=== PATIENT | female | born 1955 | race Caucasian/White ===

== ENCOUNTER 2021-12-22 08:38 | Outpatient (REF) | payer OTHER, SELFPAY ==
[2021-12-22 11:45] LABS: MANUAL DIFF FLAG NO
[2021-12-22 11:55] LABS: Basophils Percent Auto 0.6 % (0-2); Eosinophils Absolute Auto 0.1 X10*3/uL (0.0-0.4); Eosinophils Percent Auto 2.1 % (0-4); Hematocrit 41.5 % (37.0-47.0); Hemoglobin 12.7 g/dl (12.0-16.0); Imm Gran Abs Auto 0.02 X10*3/uL (0.00-0.03); Imm Gran Pct Auto 0.3 % (0.0-0.4); Lymphocytes Absolute Auto 1.6 X10*3/uL (1.2-4.9); Lymphocytes Percent Auto 23.4 % (20-40); Mean Corpuscular HGB Conc 30.6 g/dl (31.0-35.0); Mean Corpuscular Hemoglobin 27.1 pg (27.0-33.0); Mean Corpuscular Volume 88.7 fL (80.0-98.0); Mean Platelet Volume 12.9 fL (9.4-12.3); Monocytes Absolute Auto 0.4 X10*3/uL (0.1-1.2); Monocytes Percent Auto 5.5 % (2-11); Neutrophils Absolute Auto 4.6 x10*3/uL (2.0-8.3); Neutrophils Percent Auto 68.1 % (45-73); Platelet Count 235 X10*3/uL (160-400); Red Blood Count 4.68 X10*6/uL (4.20-5.50); Red Cell Distribution Width 14.4 % (11.0-16.0); White Blood Count 6.7 X10*3/uL (4.8-10.8)
[2021-12-22 12:16] LABS: Alanine Aminotransferase 12 U/L (0-31); Albumin Level 4.2 g/dL (3.5-5.0); Alkaline Phosphatase 76 U/L (39-117); Anion Gap 12 (12-20); Aspartate Amino Transferase 17 U/L (5-31); Bilirubin Total 0.6 mg/dL (0.0-1.0); Blood Urea Nitrogen 17 mg/dL (9-16); Calcium 9.6 mg/dL (8.4-10.2); Carbon Dioxide 27 mmol/L (22-29); Chloride 103 mmol/L (96-108); Cholesterol 215 mg/dL; Estimated Glomerular Filt Rate > 60; Glucose Fasting 88 mg/dL (60-99); HDL Cholesterol 63 mg/dL; LDL Cholesterol Calculated 139 mg/dl; Potassium 4.2 mmol/L (3.3-5.1); Sodium 138 mmol/L (135-145); Total Protein 7.2 g/dL (6.5-8.0); Triglycerides 65 mg/dL
[2021-12-22 12:20] LABS: Free T4 (Free Thyroxine) 1.29 ng/dL (0.71-1.85)
[2021-12-22 12:35] LABS: Folate 14.3 ng/mL (> or = 4.0); Vitamin B12 1455 pg/mL (200-900)
[2021-12-22 12:40] LABS: Rheumatoid Factor < 15.0 IU/mL (<15.0)
[2021-12-22 14:23] LABS: Erythrocyte Sedimentation Rate 8 MM/HR (0-20)
[2021-12-24 05:16] LABS: Thyroid Peroxidase Antibodies 1 IU/mL (<9)
[2021-12-24 13:41] LABS: CRP High Sensitivity >10.0 mg/L
== END 2021-12-22 08:39 | disposition home or self-care (01) ==
LOC: HO.HMGCLDS 08:38
PROVIDERS: PCP Internal Medicine; Visit Provider Internal Medicine
DX: E03.9 Hypothyroidism, unspecified (principal); M25.50 Pain in unspecified joint; R42 Dizziness and giddiness; Z86.16 Personal history of COVID-19
CPT/HCPCS: 36415; 80053; 80061; 82306; 82607; 82746; 84439; 84443; 85025; 85652; 86141; 86376; 86431

== ENCOUNTER 2022-02-11 09:24 | Outpatient (REF) | payer OTHER, SELFPAY ==
--- NOTE | ~2022-02-11 | MM_ITS ---
EXAMINATION: MM SCREENING DIGITAL BREAST TOMOSYNTHESIS, BILATERAL CLINICAL INFORMATION: Screening. Asymptomatic. Benign left ultrasound guided biopsy 07/31/2016 (fibroadenoma). The lifetime risk of breast cancer based on the Tyrer-Cuzick Model is 4%. COMPARISON: Outside exams from [place]: mammography 01/30/2019, 07/31/2016, 07/24/2016, left breast ultrasound and biopsy 07/31/2016. TECHNIQUE: Digital breast tomosynthesis is performed in both the craniocaudal and mediolateral oblique views along with computer-aided detection (CAD). Synthesized 2D images are generated from the tomosynthesis. FINDINGS: There are scattered areas of fibroglandular density (ACR BI-RADS breast composition Category b). There are no significant masses, abnormal calcifications, or other abnormalities. There is a biopsy clip marker overlying stable circumscribed nodule consistent with biopsy proven fibroadenoma anterior 3:00 left breast. There is a probable small intramammary node again noted mid outer right breast. There are some fine vascular calcifications. No significant changes. MM/MM tomosynthesis screening BI IMPRESSION: No mammographic evidence of malignancy. ASSESSMENT: BI-RADS 2: Benign RECOMMENDATION: Routine annual mammography screening. This patient's information was entered into a reminder system with a target due date for their next mammogram.
--- NOTE | ~2022-02-11 | MM_ITS ---
EXAMINATION: BONE DENSITOMETRY CLINICAL INDICATION: Menopause. COMPARISON: None (current study represents initial baseline exam). TECHNIQUE: Using a [employer] DXA System (software version: 13.1) manufactured by [employer], dual-energy x-ray absorptiometry was performed of the lumbar spine and left hip. The images are of good technical quality. Summary results are attached. FINDINGS: AP SPINE L1-L4: BMD 1.053 g/cm2, Z-score 0.1, T-score -1.1, osteopenia. LEFT FEMUR, NECK: BMD 0.760 g/cm2, Z-score -0.7, T-score -2.0, osteopenia. LEFT FEMUR, TOTAL: BMD 0.785 g/cm2, Z-score -0.7, T-score -1.8, osteopenia. IDENTIFIED RISK FACTORS: Secondary osteoporosis (early menopause). Parental hip fracture. Hysterectomy. HISTORY OF FRACTURE: None listed. MEDICATIONS: None listed. MM/XR DEXA axial skeleton IMPRESSION: 1. DIAGNOSIS: Osteopenia based on the lowest T-score value of -2.0 in the femoral neck applying World Health Organization criteria. 2. 10-YEAR FRACTURE RISK PREDICTION, FRAX: Major osteoporotic fracture (clinical spine, forearm, hip or shoulder) 10.6%. Hip fracture 1.9%. 3. Treatment Recommendations: NOF guidelines recommend consideration for treatment in postmenopausal women and men age 50 and older presenting with the following: -A hip or vertebral (clinical or morphometric) fracture. -T-score less than or equal to -2.5 at the femoral neck or spine after appropriate evaluation to exclude secondary causes. -Low bone mass at the hip or spine and a 10-year fracture probability by FRAX of greater than or equal to 3% for hip fracture or greater than or equal to 20% for major osteoporotic fracture based on the [place] adapted WHO algorithm. 4. Other Recommendations: All treatment decisions require clinical judgment and consideration of individual patient factors, including patient preferences, comorbidities, previous drug use, risk factors not captured in the FRAX model (e.g. frailty, falls, vitamin D deficiency, increased bone turnover, interval significant decline in bone density) and possible under or overestimation of fracture risk by FRAX. Additional medical evaluation for secondary cause of low bone mineral density may be appropriate. FUTURE SCAN RECOMMENDATION: People with diagnosed cases of osteoporosis or at high risk for fracture should have regular bone mineral density tests. For patients eligible for Medicare, routine testing is allowed once every 2 years. The testing frequency can be increased to one year for patients who have rapidly progressing disease, those who are receiving or discontinuing medical therapy to restore bone mass, or have additional risk factors.
== END 2022-02-11 09:25 | disposition home or self-care (01) ==
LOC: HO.MAMMO 09:24
PROVIDERS: PCP Internal Medicine; Visit Provider Internal Medicine
DX: Z13.820 Encounter for screening for osteoporosis (principal); E89.40 Asymptomatic postprocedural ovarian failure; Z90.710 Acquired absence of both cervix and uterus; Z12.31 Encounter for screening mammogram for malignant neoplasm of breast
CPT/HCPCS: 77063; 77067; 77080

== ENCOUNTER 2022-06-01 11:27 | Outpatient (REF) | payer OTHER, SELFPAY ==
--- NOTE | ~2022-06-01 | XR_ITS ---
EXAMINATION: XR KNEE, RIGHT CLINICAL INFORMATION: Right knee pain. COMPARISON: None TECHNIQUE: Four views of the right knee. FINDINGS: Jenq-cl-nolyziar tricompartmental degenerative joint changes are seen most pronounced in the medial femoral-tibial compartment. There is no acute fracture or dislocation. No significant joint effusion. The soft tissues are unremarkable. XR/XR knee RT 4V IMPRESSION: Mild to moderate tricompartmental degenerative joint changes suggesting osteoarthritis. No definitive acute abnormality.
== END 2022-06-01 11:28 | disposition home or self-care (01) ==
LOC: HO.HMGCX 11:27
PROVIDERS: PCP Internal Medicine; Visit Provider Physician Assistant
DX: M25.561 Pain in right knee (principal)
CPT/HCPCS: 73564

== ENCOUNTER 2022-07-21 07:59 | Outpatient (REF) | payer OTHER, SELFPAY ==
--- NOTE | ~2022-07-21 | XR_ITS ---
EXAMINATION: XR KNEE AP STANDING, BILATERAL XR RIGHT KNEE CLINICAL INFORMATION: Pain. COMPARISON: X-ray the right knee 06/01/2022. TECHNIQUE: AP bilateral standing view of the knees was obtained. Additional patella and lateral views of the right knee. FINDINGS: RIGHT KNEE: Medial compartment: There is joint space narrowing marginal osteophytes unchanged, indicative of bvnz-ko-muczrtjl osteoarthritis. Lateral compartment normal. Patellofemoral Compartment: Marginal osteophytes without joint space narrowing, indicative of mild osteoarthritis. No effusion. XR/XR knee standing BI IMPRESSION: Mild osteoarthritis of the right knee unchanged.
--- NOTE | ~2022-07-21 | XR_ITS ---
EXAMINATION: XR KNEE AP STANDING, BILATERAL XR RIGHT KNEE CLINICAL INFORMATION: Pain. COMPARISON: X-ray the right knee 06/01/2022. TECHNIQUE: AP bilateral standing view of the knees was obtained. Additional patella and lateral views of the right knee. FINDINGS: RIGHT KNEE: Medial compartment: There is joint space narrowing marginal osteophytes unchanged, indicative of aeyz-mf-cfyhjvii osteoarthritis. Lateral compartment normal. Patellofemoral Compartment: Marginal osteophytes without joint space narrowing, indicative of mild osteoarthritis. No effusion. XR/XR knee RT 1V IMPRESSION: Mild osteoarthritis of the right knee unchanged.
== END 2022-07-21 08:00 | disposition home or self-care (01) ==
LOC: HO.HOSX 07:59
PROVIDERS: Visit Provider Physician Assistant
DX: M17.11 Unilateral primary osteoarthritis, right knee (principal)
CPT/HCPCS: 20610; 73560; 73565; 99202; J1040

== ENCOUNTER → 2022-08-03 11:48 | Outpatient (BNVA) | payer OTHER, SELFPAY | PROVIDERS: PCP Internal Medicine; Visit Provider Orthopaedic Surgery | DX: M17.11 Unilateral primary osteoarthritis, right knee (principal) | CPT/HCPCS: 99212 ==

== ENCOUNTER → 2022-08-25 08:47 | Outpatient (BNVA) | payer OTHER, SELFPAY | PROVIDERS: PCP Internal Medicine; Visit Provider Internal Medicine Rheumatology | DX: M17.11 Unilateral primary osteoarthritis, right knee (principal); M19.049 Primary osteoarthritis, unspecified hand; G56.01 Carpal tunnel syndrome, right upper limb | CPT/HCPCS: 99202 ==

== ENCOUNTER 2022-10-06 13:18 | Outpatient (REF) | payer OTHER, SELFPAY ==
--- NOTE | ~2022-10-06 | XR_ITS ---
EXAMINATION: XR HAND, RIGHT CLINICAL INFORMATION: Primary osteoarthritis. COMPARISON: Prior study 2016 TECHNIQUE: PA, lateral, and oblique views of the right hand. FINDINGS: Mild degenerative osteoarthritic changes involving primarily the distal interphalangeal joints of all fingers evident by narrowing of joint spaces and developed small osteophyte from the edges of articular surfaces. Degenerative osteoarthritis also involving the first carpometacarpal joint. No bone erosions. XR/XR hand RT min 3V IMPRESSION: Progression of mild to moderate degenerative osteoarthritis.
== END 2022-10-06 13:19 | disposition home or self-care (01) ==
LOC: HO.XRAY 13:18
PROVIDERS: PCP Internal Medicine; Visit Provider Internal Medicine Rheumatology
DX: M19.041 Primary osteoarthritis, right hand (principal)
CPT/HCPCS: 73130

== ENCOUNTER → 2022-10-13 13:08 | Outpatient (BNVA) | payer OTHER, SELFPAY | PROVIDERS: PCP Internal Medicine; Visit Provider Orthopaedic Surgery | DX: G56.01 Carpal tunnel syndrome, right upper limb (principal); E03.9 Hypothyroidism, unspecified; Z86.16 Personal history of COVID-19 | CPT/HCPCS: 99202 ==

== ENCOUNTER 2022-11-11 09:00 | Outpatient (REF) | payer OTHER, SELFPAY ==
[2022-11-11 12:10] LABS: Free T4 (Free Thyroxine) 1.19 ng/dL (0.71-1.85); Thyroid Stimulating Hormone 1.95 uIU/mL (0.32-4.0); Vitamin D 25-OH Total 24.6 ng/mL (>30)
[2022-11-11 12:21] LABS: Folate 14.3 ng/mL (> or = 4.0); Vitamin B12 721 pg/mL (200-900)
== END 2022-11-11 09:01 | disposition home or self-care (01) ==
LOC: HO.HMGCLDS 09:00
PROVIDERS: PCP Internal Medicine; Visit Provider Internal Medicine
DX: E03.9 Hypothyroidism, unspecified (principal); E89.40 Asymptomatic postprocedural ovarian failure; R74.8 Abnormal levels of other serum enzymes; Z78.0 Asymptomatic menopausal state
CPT/HCPCS: 36415; 82306; 82607; 82746; 84439; 84443

== ENCOUNTER 2022-11-30 10:14 | Day surgery (SDC) | payer OTHER, SELFPAY ==
--- NOTE | 2022-11-30 10:53 | MHC.SHP ---
Pre-Procedural Eval Section A Date of Service: 11/30/22 The patient is an INPATIENT: No Changes since office visit: No Cold of Flu in the past 2 weeks, No New Medical Problems, No Changes in Medication and No Patient answered all questions The History & Physical has been completed within 30 days and I have reviewed it.: Yes Section B Chief Complaint: Carpal tunnel syndrome, right upper limb Allergies: Allergies Allergy/AdvReac Type Severity Reaction Status Date / Time No Known Allergies Allergy Unverified 11/05/22 08:23 [No Known Allergies*] Plan I have reviewed the history and physical and performed a pertinent physical examination on my patient. No changes have occurred unless specified. Time Spent With Patient Time: Total time managing care of this patient today ____ minutes.
--- NOTE | 2022-11-30 10:54 | W.PM.OPN ---
Operative Note Operative Note Date of Service: 11/30/22 Narrative: Preop diagnosis: 1. right Carpal tunnel syndrome Postop diagnosis: same Procedure: 1. right Carpal tunnel release Surgeon: Gabriela Petit MD Anesthesia: local block using 1% lidocaine with epinephrine Findings: Thickened transverse carpal ligament. EBL: Less than 5 mL Specimens: None Complications: None Disposition: Brought to recovery room in stable condition Plan: Follow-up for 10-14 days for wound check and suture removal Indications: The patient is 67 years old, with right carpal tunnel syndrome that has been unresponsive to nonoperative management. The risks and benefits of operative treatment including but not limited to risk of damage to blood vessels, nerves, tendons, infection, persistent pain, persistent symptoms, or possible need for additional surgery were discussed with the patient and the patient wishes to proceed with surgery. Procedure: Once consent was obtained a local block was performed using a combination of 1% lidocaine with epinephrine. The patient was then brought back to the operating suite and placed on the operative table in supine position. The right upper extremity was prepped and draped in a standard surgical fashion. Once assured that we had a good block, a 2.0 cm longitudinal incision was made centered over the carpal tunnel. The incision was made through the skin to the subcutaneous tissues using a #15 blade. Dissection was made down to the level of the transverse carpal ligament with care being taken to protect the palmar cutaneous nerve. Once the transverse carpal ligament was clearly visualized, a longitudinal incision was made in the transverse carpal ligament 1st using a #15 blade, then using tenotomy scissors under direct visualization. Care was taken to look for and protect the motor branch of the median nerve when seen in this area. Once satisfied with our carpal tunnel release the wound was copiously irrigated with normal saline and hemostasis was obtained with a brief period of local pressure. The skin edges were reapproximated with some 5.0 nylon suture material and a sterile dressing was applied. The patient appears to have tolerated the procedure well and with no complications. All digits were well vascularized at the conclusion of the case.
[2022-11-30 11:00] VITALS: BMI 32.2
[2022-11-30 11:09] VITALS: BP 140/82; PULSE 75; RESP 16; TEMP 36.1; O2SAT 100
[2022-11-30 12:38] VITALS: BP 141/86; PULSE 74; RESP 16; O2SAT 100
== END 2022-11-30 12:39 | disposition home or self-care (01) ==
PROVIDERS: PCP Internal Medicine; Visit Provider Orthopaedic Surgery
PROC: (CPT 64721; principal; 2022-11-30 12:20)
DX: G56.01 Carpal tunnel syndrome, right upper limb (principal); R20.0 Anesthesia of skin; R42 Dizziness and giddiness; E03.9 Hypothyroidism, unspecified; Z86.16 Personal history of COVID-19
CPT/HCPCS: 64721; J0171

== ENCOUNTER → 2022-12-15 09:14 | Outpatient (BNVA) | payer OTHER, SELFPAY | PROVIDERS: Visit Provider Orthopaedic Surgery | DX: Z13.89 Encounter for screening for other disorder (principal) ==

== ENCOUNTER 2023-02-15 09:10 | Outpatient (REF) | payer OTHER, SELFPAY ==
[2023-02-15 11:57] LABS: Alanine Aminotransferase 15 U/L (0-31); Aspartate Amino Transferase 18 U/L (5-31); Cholesterol 200 mg/dL; Glucose Fasting 96 mg/dL (60-99); HDL Cholesterol 58 mg/dL; LDL Cholesterol Calculated 129 mg/dl; Triglycerides 67 mg/dL
[2023-02-15 12:10] LABS: Folate 7.5 ng/mL (> or = 4.0); Free T4 (Free Thyroxine) 1.09 ng/dL (0.71-1.85); Thyroid Stimulating Hormone 1.47 uIU/mL (0.32-4.0); Vitamin B12 561 pg/mL (200-900); Vitamin D 25-OH Total 19.4 ng/mL (>30)
== END 2023-02-15 09:11 | disposition home or self-care (01) ==
LOC: HO.HMGCLDS 09:10
PROVIDERS: PCP Internal Medicine; Visit Provider Internal Medicine
DX: E89.40 Asymptomatic postprocedural ovarian failure (principal); K21.00 Gastro-esophageal reflux disease with esophagitis, without bleeding; M85.89 Other specified disorders of bone density and structure, multiple sites; E03.9 Hypothyroidism, unspecified
CPT/HCPCS: 36415; 80061; 82306; 82607; 82746; 82947; 84439; 84443; 84450; 84460

== ENCOUNTER 2023-03-24 09:10 | Outpatient (REF) | payer OTHER, SELFPAY ==
--- NOTE | ~2023-03-24 | MM_ITS ---
EXAMINATION: MM SCREENING DIGITAL BREAST TOMOSYNTHESIS, BILATERAL CLINICAL INFORMATION: Screening. Asymptomatic. The lifetime risk of breast cancer based on the Tyrer-Cuzick Model is 2.2%. COMPARISON: Mammography: 02/11/2022 and studies dating back to 07/24/2016. TECHNIQUE: Digital breast tomosynthesis is performed in both the craniocaudal and mediolateral oblique views along with computer-aided detection (CAD). Synthesized 2D images are generated from the tomosynthesis. FINDINGS: The breasts are heterogeneously dense, which may obscure small masses (ACR BI-RADS breast composition Category c). There are some scattered calcifications seen bilaterally which are stable. There is a stable grouping of calcifications in the retroareolar region of the left breast. There is a cluster of calcifications seen approximately 5 cm from the nipple along nipple line on mediolateral oblique projection of the right breast which on tomographic views appear to represent vascular calcifications.There are stable circumscribed densities seen bilaterally. No definite new abnormal dominant mass or suspicious grouping of microcalcifications identified. MM/MM tomosynthesis screening BI IMPRESSION: No significant changes from prior exam. ASSESSMENT: BI-RADS 2: Benign RECOMMENDATION: Routine annual mammography screening. This patient's information was entered into a reminder system with a target due date for their next mammogram.
== END 2023-03-24 09:11 | disposition home or self-care (01) ==
LOC: HO.MAMMO 09:10
PROVIDERS: PCP Internal Medicine; Visit Provider Internal Medicine
DX: Z12.31 Encounter for screening mammogram for malignant neoplasm of breast (principal)
CPT/HCPCS: 77063; 77067

== ENCOUNTER 2023-06-11 11:37 | Outpatient (AMB) | payer OTHER, SELFPAY ==
--- NOTE | 2023-06-11 11:51 | A.OFFPC_ITS ---
Vital Signs 06/11/23 12:04 Height 5 ft 3 in Weight 177 lb BMI 31.4 BP 112/70 Blood Pressure Location Rt brachial Position Sitting Pulse 74 Pulse Source Pulse Oximeter Pulse Oximetry (%) 97 Oxygen Delivery Method Room Air Intake Visit Reasons: f/u PAD Intake Note: Patient here for PAD screening. Allergies No Known Allergies [No Known Allergies*] Allergy (Unverified 06/11/23 12:21) Medication List - Last Reconciled 06/11/23 by Mahogany Hopper MD acetaminophen ER 650 mg PO Q12H PRN albuterol sulfate 90 mcg/actuation (Ventolin HFA) 2 puffs inhalation Q4H PRN arm brace (Wrist Brace Medium) As directed cholecalciferol (vitamin D3) 1,250 mcg PO QWEEK 3 months escitalopram oxalate 5 mg PO DAILY lansoprazole 15 mg PO QAM PRN levocetirizine 5 mg PO QPM PRN levothyroxine 75 mcg PO DAILY [Rollator Walker with seat As directed Right knee O/A stability with ambulation ] Tobacco use date assessed: 02/11/23 HPI f/u PAD HPI Details 68-year-old lady who recently had a her arterial disease screening done at [facility], which showed peripheral arterial disease, with mild obstruction in the left and moderate obstruction in the right lower extremity. She has been having pain and tingling in lower extremities when walking or standing for prolonged periods of time. This is relieved by resting. Otherwise she has been feeling well [facility] Medical History Acquired hypothyroidism Annual visit for general adult medical examination with abnormal findings Arthralgia Claudication of both lower extremities Environmental and seasonal allergies History of COVID-19 History of uterine fibroid Intermittent lightheadedness Menopause Numbness and tingling of both legs Osteopenia of multiple sites Polyarthralgia Surgical menopause Vitamin D deficiency Surgical History History of partial hysterectomy History of tubal ligation Hx of colonoscopy Family History Daughter Asthma Thyroid disease Sister Asthma Thyroid disease Mother Alzheimer disease Father FHx: early [place] Social History Housing: Apartment Patient Tobacco Use Status: Never used Tobacco e-Cigarette/Vaping Use: Never Used service: No Current occupational status: disabled Cognitive needs: No Hearing needs: No Vision needs: Yes Questionnaire Thrive Questionnaire Date Thrive assessed: 02/11/23 ELIGIO-7 AMB Questionnaire ELIGIO-7 Date ELIGIO - 7 assessed: 02/11/23 Source: Developed by Drs. Carlos Goldstein, Yadira Long, Tigre Esquivel and colleagues, with an educational nayely from [employer]. Physical exam (Primary Care) Vital Signs: Last Vital Signs Pulse 74 06/11/23 12:04 BP 112/70 06/11/23 12:04 Pulse Ox 97 06/11/23 12:04 Oxygen Delivery Method Room Air 06/11/23 12:04 BMI result Body Mass Index 31.4 Tobacco/Smoking Status: Tobacco use Status Tobacco use date assessed 02/11/23 06/11/23 11:52 Patient Tobacco Use Status Never used Tobacco 06/11/23 11:52 e-Cigarette/Vaping Use Never Used 06/11/23 11:52 Thrive Assessment: Date of Thrive Assessment Date Thrive assessed 02/11/23 06/11/23 11:52 Assessment and Plan Assessment & Plan (1) Numbness and tingling of both legs: Code(s): R20.0 - Anesthesia of skin; R20.2 - Paresthesia of skin Plan: Arterial ultrasound of both lower extremities ordered, referred to vascular surgery for further evaluation management (2) Claudication of both lower extremities: Code(s): I73.9 - Peripheral vascular disease, unspecified Plan: Artery ultrasound of both lower extremities ordered, vascular consult obtained (3) Osteopenia of multiple sites: Comment: Bone density scan done February 2022 Code(s): M85.89 - Other specified disorders of bone density and structure, multiple sites Plan: Continue with vitamin-D 3 supplementation . Take adequate calcium from dietary sources. Do regular weight-bearing exercise to prevent further bone loss (4) Acquired hypothyroidism: Code(s): E03.9 - Hypothyroidism, unspecified Plan: Check free T4 and TSH. In the meantime continue with current dose of levothyroxine at 75 mcg once a day in a.m. an hour before breakfast Orders: Orders US arterial duplex LE BI 06/11/23 I73.9 - Peripheral vascular disease, unspecified, R20.0 - Anesthesia of skin, R20.2 - Paresthesia of skin Free T4 (Free Thyroxine) 3 Months E03.9 - Hypothyroidism, unspecified, E89.40 - Asymptomatic postprocedural ovarian failure, M85.89 - Other specified disorders of bone density and structure, multiple sites Thyroid Stimulating Hormone 06/11/23 E03.9 - Hypothyroidism, unspecified, E89.40 - Asymptomatic postprocedural ovarian failure, M85.89 - Other specified disorders of bone density and structure, multiple sites Vitamin D 25-OH Total 06/11/23 E03.9 - Hypothyroidism, unspecified, E89.40 - Asymptomatic postprocedural ovarian failure, M85.89 - Other specified disorders of bone density and structure, multiple sites Referrals Vascular Surgery Referral I73.9 - Peripheral vascular disease, unspecified, R20.0 - Anesthesia of skin, R20.2 - Paresthesia of skin Coding Level of Care Code Est Pt Level 3 (82943) Diagnoses Numbness and tingling of both legs R20.0; R20.2 Claudication of both lower extremities I73.9 Osteopenia of multiple sites M85.89 Acquired hypothyroidism E03.9
[2023-06-11 12:04] VITALS: BP 112/70; PULSE 74; O2SAT 97; BMI 31.4
== END 2023-06-11 13:41 | disposition home or self-care (01) ==
PROVIDERS: PCP Internal Medicine; Visit Provider Internal Medicine
DX: R20.0 Anesthesia of skin (principal); I73.9 Peripheral vascular disease, unspecified; E03.9 Hypothyroidism, unspecified; R20.2 Paresthesia of skin; M85.89 Other specified disorders of bone density and structure, multiple sites
CPT/HCPCS: 99213

== ENCOUNTER 2023-06-23 13:20 | Outpatient (REF) | payer OTHER, SELFPAY ==
--- NOTE | ~2023-06-23 | US_ITS ---
EXAMINATION: NONINVASIVE ASSESSMENT OF THE ARTERIES OF BOTH LOWER EXTREMITIES Lalo Medrano MD CLINICAL INFORMATION: Claudication TECHNIQUE: Bilateral lower extremity duplex ultrasound was performed with velocity measurements and waveform analysis in the common femoral arteries, profunda femoris arteries, proximal mid and distal superficial femoral arteries, popliteal arteries and tibial vessels. This study was performed only at rest. COMPARISON: None FINDINGS: Velocities in cm/sec and phasicity as well as the presence of plaque are reported below. RIGHT LEG: Minimal plaque with triphasic flow throughout. Incidental note is made of a 1.7 x 0.7 x 1.5 cm echogenic mass in the right popliteal fossa with appearances consistent with a lipoma Common Femoral: 165 Profunda Femoris: 99 Proximal SFA: 112 Mid SFA: 113 Distal SFA: 87 Popliteal: 85 Posterior tibial: 69 Peroneal: 66 Anterior tibial: 58 LEFT LEG: Minimal plaque with triphasic flow throughout. Common Femoral: 104 Profunda Femoris: 69 Proximal SFA: 110 Mid SFA: 106 Distal SFA: 97 Popliteal: 77 Posterior tibial: 82 Peroneal: 60 Anterior tibial: 58 US/US arterial duplex LE BI IMPRESSION: There is no evidence of any hemodynamically significant lower extremity arterial disease by waveform or duplex Doppler criteria at rest.
== END 2023-06-23 13:21 | disposition home or self-care (01) ==
LOC: HO.US 13:20
PROVIDERS: PCP Internal Medicine; Visit Provider Internal Medicine
DX: I73.9 Peripheral vascular disease, unspecified (principal); R20.0 Anesthesia of skin; R20.2 Paresthesia of skin
CPT/HCPCS: 93925

== ENCOUNTER 2023-08-02 09:48 | Outpatient (REF) | payer OTHER, SELFPAY ==
[2023-08-02 13:48] LABS: Thyroid Stimulating Hormone 1.21 uIU/mL (0.32-4.0); Vitamin D 25-OH Total 81.1 ng/mL (>30)
== END 2023-08-02 09:49 | disposition home or self-care (01) ==
LOC: HO.HMGCLDS 09:48
PROVIDERS: PCP Internal Medicine; Visit Provider Internal Medicine
DX: M85.89 Other specified disorders of bone density and structure, multiple sites (principal); E03.9 Hypothyroidism, unspecified; E89.40 Asymptomatic postprocedural ovarian failure
CPT/HCPCS: 36415; 82306; 84443

== ENCOUNTER 2023-08-09 10:58 | Outpatient (AMB) | payer MEDICARE, SELFPAY ==
--- NOTE | 2023-08-09 11:25 | A.OFFPC_ITS ---
Vital Signs 08/09/23 11:26 Height 5 ft 3 in Weight 175 lb BMI 31.0 BP 116/80 Pulse 72 Pulse Source Pulse Oximeter Pulse Oximetry (%) 100 Oxygen Delivery Method Room Air Intake Visit Reasons: 6 month follow up Acquired hypothyroidism Intake Note: patient is here today for her 6 month f/u Allergies No Known Allergies [No Known Allergies*] Allergy (Unverified 08/09/23 12:08) Medication List - Last Reconciled 08/09/23 by Mahogany Hopper MD acetaminophen ER 650 mg PO Q12H PRN albuterol sulfate 90 mcg/actuation (Ventolin HFA) 2 puffs inhalation Q4H PRN arm brace (Wrist Brace Medium) As directed escitalopram oxalate 5 mg PO DAILY lansoprazole 15 mg PO QAM PRN levocetirizine 5 mg PO QPM PRN levothyroxine 75 mcg PO DAILY [Rollator Walker with seat As directed Right knee O/A stability with ambulation ] Tobacco use date assessed: 08/09/23 Fall risk assessment: No Falls in past year Last assessed Fall Risk: 08/09/23 Dental Screening Dental Screen Date: 08/09/23 Did you have a dental visit in the last 12 months?: Yes Did you have a dental problem in the last 6 months where you did not have access to dental care?: No Was dental information given to patient?: Patient has dentist HPI 6 month follow up Acquired hypothyroidism HPI Details 68-year-old lady with hypothyroidism acq uired, currently on levothyroxine 75 mcg daily, here today for her follow-up. She had recent fasting labs done which showed thyroid levels within normal limits, vitamin-D level now within normal limits . She also has intermittent episodes of wheezing usually with exertion, would like a refill on her albuterol inhaler to have on hand during one of these episodes.. Patient is a nonsmoker. She also has been having intermittent episodes of leg cramps, worse at night, she has been taking magnesium in the past which has helped, but has not been taking it lately. [facility] Medical History (Updated 08/09/23 @ 12:14 by Mahogany Hopper MD) COVID-19 vaccination refused Refused influenza vaccine Reactive airway disease without asthma Claudication of both lower extremities Numbness and tingling of both legs Vitamin D deficiency Annual visit for general adult medical examination with abnormal findings Osteopenia of multiple sites Environmental and seasonal allergies Menopause Polyarthralgia Surgical menopause History of COVID-19 Arthralgia Intermittent lightheadedness History of uterine fibroid Acquired hypothyroidism Surgical History Hx of colonoscopy History of partial hysterectomy History of tubal ligation Family History Daughter Asthma Thyroid disease Sister Asthma Thyroid disease Mother Alzheimer disease Father FHx: early [place] Social History Housing: Apartment Patient Tobacco Use Status: Never used Tobacco e-Cigarette/Vaping Use: Never Used service: No Current occupational status: disabled Cognitive needs: No Hearing needs: No Vision needs: Yes Questionnaire Thrive Questionnaire Date Thrive assessed: 02/11/23 AUDIT C Alcohol Use Questionnaire (AUDIT-C) 1. How often do you have a drink containing alcohol?: Never Total Score: 0 ELIGIO-7 AMB Questionnaire ELIGIO-7 Date ELIGIO - 7 assessed: 02/11/23 Source: Developed by Drs. Carlos Goldstein, Yadira Lnog, Tigre Esquivel and colleagues, with an educational nayely from [employer]. Review of Systems Const Denies fatigue, Denies fever(s), Denies headache(s) and Denies weakness Eyes Denies change in vision ENT Denies dizziness, Denies headache(s), Reports nasal congestion, Reports nasal discharge (clear), Reports post nasal drip, Denies tinnitus, Denies sinus pressure and Denies sore throat Card Denies chest pain, Denies lightheadedness, Denies palpitations and Denies dyspnea Resp Denies chest congestion, Denies cough, Denies dyspnea and Denies wheezing GI Denies abdominal pain, Denies change in bowel habits and Denies heartburn Denies urinary frequency, Denies dysuria and Denies urinary urgency Musc Reports arthralgias (right wrist and fingers, knees), Denies joint swelling, Denies muscle weakness and Reports stiffness Skin/Breast Denies lesions and Denies rash Neuro Reports as per HPI, Denies dizziness, Denies headache(s) and Denies weakness Psych Reports as per HPI Endo Denies fatigue, Denies polydipsia, Denies polyuria and Denies palpitations Guy/Lymph Denies easy bruising Aller/Immun Denies seasonal rhinorrhea and Denies wheezing Physical exam (Primary Care) Vital Signs: Last Vital Signs Pulse 72 08/09/23 11:26 BP 116/80 08/09/23 11:26 Pulse Ox 100 08/09/23 11:26 Oxygen Delivery Method Room Air 08/09/23 11:26 BMI result Body Mass Index 31.0 Tobacco/Smoking Status: Tobacco use Status Tobacco use date assessed 08/09/23 08/09/23 11:33 Patient Tobacco Use Status Never used Tobacco 08/09/23 11:25 e-Cigarette/Vaping Use Never Used 08/09/23 11:25 Thrive Assessment: Date of Thrive Assessment Date Thrive assessed 02/11/23 08/09/23 11:25 Const Other: Patient accompanied by daughter who has been helping translate, patient also can speak a little Vietnamese General: healthy appearing, comfortable and no acute distress Nutritional Appearance: obese Orientation/consciousness: patient oriented x3 Limitations: no limitations HENMT Ears: hearing grossly normal bilaterally General nose exam: Normal external nose present Face and sinus: Yes face symmetric Mouth: Normal oral and palatal mucosa present and moist mucous membranes Eyes General: appearance normal, both eyes and all related structures Neck Other: supple, no lymphadenopathy, thyroid nonpalpable/nontender to palpation Resp Auscultation: clear to auscultation bilaterally Cardio Other: S1-S2 present regular rate and rhythm GI Palpation (GI): Soft to palpation, nontender, no guarding and no masses Auscultation: normal bowel sounds Neuro General: patient oriented x3, gait normal, tone normal, moves all extremities, Normal light touch and pain sensation, no focal motor deficits and CN's II-XI intact bilaterally Cognition (Neuro): normal cognition Gait exam (Neuro): Normal gait present Motor exam (neuro): 5/5 motor strength present throughout and no tremor noted Immunizations pneumoc 20-bobby conj-dip cr(PF) 0.5 mL IM syringe Performing Provider: Mahogany Hopper MD Performing Location: [facility] Administered by: Sugey Smith CMA on 08/09/23 12:06 Dose Route Admin Location Dispensed Lot Number Expiration Date NDC [employer] Effects Layout Person 0.5 mL IM Left Deltoid 0.5 mL [id number] 09/07/24 [id number] [employer] VIS Given Date VIS Provided VIS Publication Date 08/09/23 Single Vaccine 21 Eligibility Eligibility Date Funding Source Not [facility] Eligible 08/09/23 Private Assessment and Plan Assessment & Plan (1) Acquired hypothyroidism: Code(s): E03.9 - Hypothyroidism, unspecified Plan: Latest thyroid levels are within normal limits, continued on current dose of levothyroxine. Will repeat again thyroid levels in 6 months. (2) Leg cramps: Code(s): R25.2 - Cramp and spasm Plan: Advised to continue taking magnesium supplements, [id number] for at least 400 mg once a day as needed for leg cramps. (3) Reactive airway disease without asthma: Code(s): J98.9 - Respiratory disorder, unspecified Plan: Usually triggered by moderate exertion or upper respiratory symptoms. Prescription sent for albuterol inhaler to use as needed for episodes of bronchospasm and wheezing. (4) Refused influenza vaccine: Code(s): Z28.21 - Immunization not carried out because of patient refusal (5) COVID-19 vaccination refused: Code(s): Z28.21 - Immunization not carried out because of patient refusal (6) Need for pneumococcal 20-valent conjugate vaccination: Code(s): Z23 - Encounter for immunization Plan: Prevnar 20 given today Orders: Orders Basic Metabolic Panel Fasting 01/31/24 E03.9 - Hypothyroidism, unspecified, E89.40 - Asymptomatic postprocedural ovarian failure, I73.9 - Peripheral vascular disease, unspecified, M85.89 - Other specified disorders of bone density and structure, multiple sites, R20.0 - Anesthesia of skin, R20.2 - Paresthesia of skin Hemoglobin and Hematocrit 01/31/24 E03.9 - Hypothyroidism, unspecified, E89.40 - Asymptomatic postprocedural ovarian failure, I73.9 - Peripheral vascular disease, unspecified, M85.89 - Other specified disorders of bone density and structure, multiple sites, R20.0 - Anesthesia of skin, R20.2 - Paresthesia of skin Pneumococcal 20 Immunization Today Z23 - Encounter for immunization Vitamin D 25-OH Total 01/31/24 E03.9 - Hypothyroidism, unspecified, E89.40 - Asymptomatic postprocedural ovarian failure, I73.9 - Peripheral vascular disease, unspecified, M85.89 - Other specified disorders of bone density and structure, multiple sites, R20.0 - Anesthesia of skin, R20.2 - Paresthesia of skin Thyroid Stimulating Hormone 01/31/24 E03.9 - Hypothyroidism, unspecified, E89.40 - Asymptomatic postprocedural ovarian failure, I73.9 - Peripheral vascular disease, unspecified, M85.89 - Other specified disorders of bone density and structure, multiple sites, R20.0 - Anesthesia of skin, R20.2 - Paresthesia of skin Free T4 (Free Thyroxine) 01/31/24 E03.9 - Hypothyroidism, unspecified, E89.40 - Asymptomatic postprocedural ovarian failure, I73.9 - Peripheral vascular disease, unspecified, M85.89 - Other specified disorders of bone density and structure, multiple sites, R20.0 - Anesthesia of skin, R20.2 - Paresthesia of skin Medications: Refilled albuterol sulfate 90 mcg/actuation (Ventolin HFA) 2 puffs inhalation Q4H PRN 8.5 grams 1RF wheezing levothyroxine 75 mcg PO DAILY 90 tabs 3RF levothyroxine 75 mcg PO DAILY 90 tabs 3RF Coding Level of Care Code Est Pt Level 3 (46977) Diagnoses Acquired hypothyroidism E03.9 Leg cramps R25.2 Reactive airway disease without asthma J98.9 Refused influenza vaccine Z28.21 COVID-19 vaccination refused Z28.21 Need for pneumococcal 20-valent conjugate vaccination Z23
[2023-08-09 11:26] VITALS: BP 116/80; PULSE 72; O2SAT 100; BMI 31.0
== END 2023-08-09 14:06 | disposition home or self-care (01) ==
PROVIDERS: Visit Provider Internal Medicine
DX: E03.9 Hypothyroidism, unspecified (principal); R25.2 Cramp and spasm; J98.9 Respiratory disorder, unspecified; Z28.21 Immunization not carried out because of patient refusal; Z23 Encounter for immunization
CPT/HCPCS: 90471; 90677; 99213

== ENCOUNTER 2024-02-21 10:52 | Outpatient (AMB) | payer OTHER, SELFPAY ==
[2024-02-21 11:04] VITALS: BP 128/70; PULSE 66; O2SAT 98; BMI 31.2
--- NOTE | 2024-02-21 11:04 | A.OFFPC_ITS ---
Vital Signs 02/21/24 11:04 Height 5 ft 3 in Weight 176 lb BMI 31.2 BP 128/70 Blood Pressure Location Rt brachial Position Sitting Pulse 66 Pulse Source Pulse Oximeter Pulse Oximetry (%) 98 Oxygen Delivery Method Room Air Intake Visit Reasons: Annual PE Intake Note: Pt is here today for her PE: Mammogram 03/24/23, bone density scan 02/11/22, colonoscopy 2015 [facility] Allergies No Known Allergies [No Known Allergies*] Allergy (Unverified 02/21/24 11:36) Medication List - Last Reconciled 02/21/24 by Mahogany Hopper MD acetaminophen ER 650 mg PO Q12H PRN albuterol sulfate 90 mcg/actuation (Ventolin HFA) 2 puffs inhalation Q4H PRN arm brace (Wrist Brace Medium) As directed escitalopram oxalate 10 mg PO DAILY lansoprazole 15 mg PO QAM PRN levocetirizine 5 mg PO QPM PRN levothyroxine 75 mcg PO DAILY [Rollator Walker with seat As directed Right knee O/A stability with ambulation ] Tobacco use date assessed: 02/21/24 Fall risk assessment: 1 Fall in past year Last assessed Fall Risk: 02/21/24 Dental Screening Dental Screen Date: 02/21/24 Did you have a dental visit in the last 12 months?: Yes Did you have a dental problem in the last 6 months where you did not have access to dental care?: No Was dental information given to patient?: Patient has dentist HPI Annual PE HPI Details 68-year-old lady with hypothyroidism, hi story of reactive airway disease without asthma, environmental and seasonal allergies, osteoarthritis, GERD, here today for physical exam. She is up-to-date with her screening mammogram, last done 03/24/23, her last bone density scan was done 02/11/22 which showed osteopenia in lumbar spine , left femoral neck and thigh, had a colonoscopy in 2016 at [facility]. She is currently being seen by her psychiatrist and therapist at [facility] for treatment of her depression with anxiety, currently controlled with present medication. She has had her pneumonia vaccine and Tdap, but does not want to get a COVID vaccine , flu vaccine or shingles vaccines. Complains of a slightly painful enlarging nodular mass behind her right knee which has been present now for the last several months. Would like to get it removed [facility] Medical History (Updated 02/22/24 @ 02:39 by Mahogany Hopper MD) Mixed anxiety and depressive disorder Seronegative inflammatory arthritis COVID-19 vaccination refused Refused influenza vaccine Reactive airway disease without asthma Claudication of both lower extremities Numbness and tingling of both legs Vitamin D deficiency Annual visit for general adult medical examination with abnormal findings Osteopenia of multiple sites Environmental and seasonal allergies Menopause Surgical menopause History of COVID-19 Arthralgia Intermittent lightheadedness History of uterine fibroid Acquired hypothyroidism Surgical History Hx of colonoscopy History of partial hysterectomy History of tubal ligation Family History Daughter Asthma Thyroid disease Sister Asthma Thyroid disease Mother Alzheimer disease Father FHx: early [place] Social History Housing: Apartment Patient Tobacco Use Status: Never used Tobacco e-Cigarette/Vaping Use: Never Used service: No Current occupational status: disabled Cognitive needs: No Hearing needs: No Vision needs: Yes Female Reproductive History Menstrual Menopause type: surgical Questionnaire PHQ-9 Over the last 2 weeks, how often have you been bothered by any of the following problems? 1. Little interest or pleasure in doing things: not at all 2. Feeling down, depressed, or hopeless: not at all 3. Trouble falling or staying asleep, or sleeping too much: not at all 4. Feeling tired or having little energy: not at all 5. Poor appetite or overeating: not at all 6. Feeling bad about yourself - or that you are a failure or have let yourself or your family down: not at all 7. Trouble concentrating on things, such as reading the newspaper or watching television: not at all 8. Moving or speaking so slowly that other people could have noticed. Or the opposite - being so fidgety or restless that you have been moving around a lot more than usual: not at all 9. Thoughts that you would be better off or of hurting yourself in some way: not at all Total score: 0 Depression Screening Interpretation: Negative (Currently being seen at [facility], depression controlled with escitalopram) Depression Screening Done: Yes 15288 - PHQ-9 Billing: Yes Source: Developed by Drs. Carlos Goldstein, Yadira Long, Tigre Esquivel and colleagues, with an educational nayely from [employer]. Thrive Questionnaire Date Thrive assessed: 02/21/24 I am a: Patient What is your living situation today?: I have a steady place to live Within the past 12 months, did the food you bought not last and you didn't have the money to get more?: Never true Within the past 12 months, did you worry whether your food would run out before you got money to buy more?: Never true Do you have trouble paying for medicines?: No Do you have trouble getting transportation to medical appointments?: No Do you have trouble paying your heating and electricity bill?: No Do you have trouble taking care of your child, family member or friend?: No Do you have trouble with day-to-day activities such as bathing, preparing meals, shopping, managing finances, etc.?: No Are you currently unemployed and looking for a job?: No Are you interested in more education?: No THRIVE Score: 0 AUDIT C Alcohol Use Questionnaire (AUDIT-C) 1. How often do you have a drink containing alcohol?: Never Total Score: 0 ELIGIO-7 AMB Questionnaire ELIGIO-7 Date ELIGIO - 7 assessed: 02/21/24 Feeling nervous, anxious, or on edge: 0 = Not at all Not being able to stop or control worryin = Not at all Worrying too much about different things: 0 = Not at all Trouble relaxin = Not at all Being so restless that it is hard to sit still: 0 = Not at all Becoming easily annoyed or irritable: 0 = Not at all Feeling afraid as if something awful might happen: 0 = Not at all Total ELIGIO-7 score (0-4 normal; 5-9 mild; 10-14 moderate; 15-21 severe): 0 Source: Developed by Drs. Carlos Goldstein, Yadira Long, Tigre Esquivel and colleagues, with an educational nayely from [employer]. Review of Systems Const Denies fatigue, Denies fever(s), Denies headache(s) and Denies weakness Eyes Denies change in vision ENT Denies dizziness, Denies headache(s), Denies sinus pressure and Denies sore throat Card Denies chest pain, Denies lightheadedness, Denies palpitations and Denies dyspnea Resp Denies chest congestion, Denies cough, Denies dyspnea and Denies wheezing GI Denies abdominal pain, Denies change in bowel habits and Denies heartburn Denies urinary frequency, Denies dysuria and Denies urinary urgency Musc Reports arthralgias (right wrist and fingers, knees), Denies joint swelling, Denies muscle weakness and Reports stiffness Skin/Breast Reports as per HPI and Denies rash Neuro Reports as per HPI, Denies dizziness, Denies headache(s) and Denies weakness Psych Reports no additional complaints Endo Denies fatigue, Denies polydipsia, Denies polyuria and Denies palpitations Guy/Lymph Denies easy bruising Aller/Immun Denies seasonal rhinorrhea and Denies wheezing Physical exam (Primary Care) Vital Signs: Last Vital Signs Pulse 66 02/21/24 11:04 BP 128/70 02/21/24 11:04 Pulse Ox 98 02/21/24 11:04 Oxygen Delivery Method Room Air 02/21/24 11:04 BMI result Body Mass Index 31.2 Tobacco/Smoking Status: Tobacco use Status Tobacco use date assessed 02/21/24 02/21/24 11:07 Patient Tobacco Use Status Never used Tobacco 02/21/24 11:07 e-Cigarette/Vaping Use Never Used 02/21/24 11:07 PHQ-9: PHQ-9 Score PHQ-9: Total score 0 02/21/24 11:37 Depression Screening Interpretation: Negative (Currently being seen at [facility], depression controlled with escitalopram) Thrive Assessment: Date of Thrive Assessment Date Thrive assessed 02/21/24 02/21/24 11:15 Date of discussion: 02/21/24 Who was present: Patient and daughter Forms completed: Health Care Proxy and MOLST Time spent: 16-45 minutes Actual minutes spent: 16 Const Other: Patient accompanied by daughter who has been helping translate, patient also can speak a little Irish General: healthy appearing, comfortable and no acute distress Nutritional Appearance: obese Orientation/consciousness: patient oriented x3 HENMT Ears: hearing grossly normal bilaterally General nose exam: Normal external nose present Face and sinus: Yes face symmetric Mouth: Normal oral and palatal mucosa present and moist mucous membranes Eyes General: appearance normal, both eyes and all related structures Neck Other: supple, no lymphadenopathy, thyroid nonpalpable/nontender to palpation Chest Chest palpation & inspection: normal inspection of the chest Breast/axilla palpation: normal palpation of the breasts Resp Auscultation: clear to auscultation bilaterally Cardio Other: S1-S2 present regular rate and rhythm GI Palpation (GI): Soft to palpation, nontender, no guarding and no masses Auscultation: normal bowel sounds General: Yes no CVA tenderness Back/Spine/Pelvis Back: no CVA tenderness and No back tenderness Skin Other: Scattered hypopigmented macular lesions on chest, extremities, neck, nodular lesion on right popliteal fossa Neuro General: patient oriented x3, gait normal, tone normal, moves all extremities, Normal light touch and pain sensation, no focal motor deficits and CN's II-XI intact bilaterally Cognition (Neuro): normal cognition Gait exam (Neuro): Normal gait present Motor exam (neuro): 5/5 motor strength present throughout Extrem General: Yes full ROM, Yes no joint enlargement, Yes no clubbing, cyanosis or edema, Yes no calf tenderness and Yes normal gait Psych Appearance: grossly normal and well kempt Mental Status: mental status grossly normal Speech and movement: Normal speech and movement present Affect: normal affect Assessment and Plan Assessment & Plan (1) Annual visit for general adult medical examination with abnormal findings: Code(s): Z00.01 - Encounter for general adult medical examination with abnormal findings Plan: Reminded to get fasting labs done, already ordered. Recommended dental visit every 6 months and regular eye exams, at least every 2 years. Take adequate calcium in diet and vitamin-D 3 at 2000 IU per cap once a day, in addition to weight-bearing exercises to help maintain good muscle tone and weight control. Bone density scan ordered Instructed to do self-breast exam, and recommended to continue with yearly mammogram. Colonoscopy due again in 2025. Patient declines vaccinations (2) Osteopenia of multiple sites: Comment: Bone density scan done February 2022 Code(s): M85.89 - Other specified disorders of bone density and structure, multiple sites Plan: Bone density scan ordered, reminded to get lab done to check vitamin-D level and calcium (3) Screening for Malignant Neoplasm of Skin: Code(s): Z12.83 - Encounter for screening for malignant neoplasm of skin Plan: Dermatology consult ordered (4) Painful skin lesion: Code(s): L98.9 - Disorder of the skin and subcutaneous tissue, unspecified Plan: Referred to dermatology (5) Seronegative inflammatory arthritis: Comment: sees Dr Sarmad Diaz Code(s): M13.80 - Other specified arthritis, unspecified site Plan: Followed by Rheumatology, Dr. Diaz (6) COVID-19 vaccination refused: Code(s): Z28.21 - Immunization not carried out because of patient refusal (7) Refused influenza vaccine: Code(s): Z28.21 - Immunization not carried out because of patient refusal (8) Environmental and seasonal allergies: Code(s): J30.89 - Other allergic rhinitis Plan: Continue levocetirizine as needed (9) Acquired hypothyroidism: Code(s): E03.9 - Hypothyroidism, unspecified Plan: Reminded to get her labs done to check TSH and free T4, already ordered (10) Advanced directives, counseling/discussion: Code(s): Z71.89 - Other specified counseling Plan: Initiated the conversation about Advanced Directives. Advanced Directives help patients prepare for current and future decisions about their medical treatment and place of care. Discussed with patient that it is a process where a patients current condition and prognosis are reviewed, their wishes for information regarding their illness are elicited, and likely medical dilemmas are presented and options discussed. Healthcare proxy form and MOLST form completed on this visit. The form can be amended as needed, reviewed yearly and make changes as needed (11) Mixed anxiety and depressive disorder: Code(s): F41.8 - Other specified anxiety disorders Plan: Followed by Psychiatry and therapist at [facility] in counseling, currently on escitalopram Orders: Orders XR DEXA axial skeleton 02/21/24 M85.89 - Other specified disorders of bone density and structure, multiple sites Referrals Dermatology Referral L98.9 - Disorder of the skin and subcutaneous tissue, unspecified, Z12.83 - Encounter for screening for malignant neoplasm of skin Coding Level of Care Code Est Pt Prev Care >65y(25371) Diagnoses Annual visit for general adult medical examination with abnormal findings Z00.01 Osteopenia of multiple sites M85.89 Screening for Malignant Neoplasm of Skin Z12.83 Painful skin lesion L98.9 Seronegative inflammatory arthritis M13.80 COVID-19 vaccination refused Z28.21 Refused influenza vaccine Z28.21 Environmental and seasonal allergies J30.89 Acquired hypothyroidism E03.9 Advanced directives, counseling/discussion Z71.89 Mixed anxiety and depressive disorder F41.8 Additional Codes Vital Signs *Quality* - Time spent: 16-45 minutes ([id number])
== END 2024-02-21 15:31 | disposition home or self-care (01) ==
PROVIDERS: Visit Provider Internal Medicine
DX: Z00.00 Encounter for general adult medical examination without abnormal findings (principal); M85.89 Other specified disorders of bone density and structure, multiple sites; Z12.83 Encounter for screening for malignant neoplasm of skin; L98.9 Disorder of the skin and subcutaneous tissue, unspecified; M13.80 Other specified arthritis, unspecified site; Z28.21 Immunization not carried out because of patient refusal; J30.89 Other allergic rhinitis; E03.9 Hypothyroidism, unspecified; Z71.89 Other specified counseling; F41.8 Other specified anxiety disorders
CPT/HCPCS: 99397; 99497

== ENCOUNTER 2024-02-23 09:05 | Outpatient (REF) | payer MEDICARE, SELFPAY ==
[2024-02-23 10:38] LABS: Hematocrit 40.2 % (37.0-47.0); Hemoglobin 12.5 g/dl (12.0-16.0)
[2024-02-23 11:07] LABS: Anion Gap 10 (12-20); Blood Urea Nitrogen 12 mg/dL (9-16); Calcium 9.2 mg/dL (8.4-10.2); Carbon Dioxide 27 mmol/L (22-29); Chloride 108 mmol/L (96-108); Estimated Glomerular Filt Rate > 60; Glucose Fasting 85 mg/dL (60-99); Sodium 141 mmol/L (135-145)
[2024-02-23 11:21] LABS: Free T4 (Free Thyroxine) 1.02 ng/dL (0.71-1.85); Thyroid Stimulating Hormone 1.33 uIU/mL (0.32-4.0)
== END 2024-02-23 09:06 | disposition home or self-care (01) ==
LOC: HO.HMGCLDS 09:05
PROVIDERS: PCP Internal Medicine; Visit Provider Internal Medicine
DX: I73.9 Peripheral vascular disease, unspecified (principal); R20.0 Anesthesia of skin; R20.2 Paresthesia of skin; M85.89 Other specified disorders of bone density and structure, multiple sites; E89.40 Asymptomatic postprocedural ovarian failure; E03.9 Hypothyroidism, unspecified
CPT/HCPCS: 36415; 80048; 82306; 84439; 84443; 85014; 85018

== ENCOUNTER → 2024-05-03 09:45 | Outpatient (BNV) | payer MEDICARE, SELFPAY | PROVIDERS: Visit Provider Radiology Diagnostic Radiology | DX: Z12.31 Encounter for screening mammogram for malignant neoplasm of breast (principal) | CPT/HCPCS: 77063; 77067 ==

== ENCOUNTER 2024-05-03 09:48 | Outpatient (REF) | payer MEDICARE, SELFPAY ==
--- NOTE | ~2024-05-03 | MM_ITS ---
EXAMINATION: BONE DENSITOMETRY CLINICAL INDICATION: Osteopenia. COMPARISON: This is the patient's baseline examination. TECHNIQUE: Using a [employer] DXA System (software version: 13.1) manufactured by [employer], dual-energy x-ray absorptiometry was performed of the lumbar spine and left hip. The images are of good technical quality. Summary results are attached. FINDINGS: LEFT FEMUR, NECK: BMD 0.781 g/cm2, Z-score -0.5, T-score -1.8, osteopenia. LEFT FEMUR, TOTAL: BMD 0.837 g/cm2, Z-score -0.2, T-score -1.4, osteopenia. AP SPINE L1-L4: BMD 1.023 g/cm2, Z-score -0.1, T-score -1.3, osteopenia. IDENTIFIED RISK FACTORS: Early menopause, family history (parent hip fracture), hysterectomy, secondary osteoporosis. HISTORY OF FRACTURE: None listed. MEDICATIONS: Vitamin D. MM/XR DEXA axial skeleton IMPRESSION: 1. DIAGNOSIS: Osteopenia based on the lowest T-score value of -1.8 in the femoral neck applying World Health Organization criteria. 2. 10-YEAR FRACTURE RISK PREDICTION, FRAX: Major osteoporotic fracture (clinical spine, forearm, hip or shoulder) 10.0%. Hip fracture 2.7%. 3. Treatment Recommendations: NOF guidelines recommend consideration for treatment in postmenopausal women and men age 50 and older presenting with the following: -A hip or vertebral (clinical or morphometric) fracture. -T-score less than or equal to -2.5 at the femoral neck or spine after appropriate evaluation to exclude secondary causes. -Low bone mass at the hip or spine and a 10-year fracture probability by FRAX of greater than or equal to 3% for hip fracture or greater than or equal to 20% for major osteoporotic fracture based on the [place] adapted WHO algorithm. 4. Other Recommendations: All treatment decisions require clinical judgment and consideration of individual patient factors, including patient preferences, comorbidities, previous drug use, risk factors not captured in the FRAX model (e.g. frailty, falls, vitamin D deficiency, increased bone turnover, interval significant decline in bone density) and possible under or overestimation of fracture risk by FRAX. Additional medical evaluation for secondary cause of low bone mineral density may be appropriate. FUTURE SCAN RECOMMENDATION: People with diagnosed cases of osteoporosis or at high risk for fracture should have regular bone mineral density tests. For patients eligible for Medicare, routine testing is allowed once every 2 years. The testing frequency can be increased to one year for patients who have rapidly progressing disease, those who are receiving or discontinuing medical therapy to restore bone mass, or have additional risk factors.
--- NOTE | ~2024-05-03 | MM_ITS ---
EXAMINATION: MM SCREENING DIGITAL BREAST TOMOSYNTHESIS, BILATERAL CLINICAL INFORMATION: Screening. Asymptomatic. COMPARISON: Mammography: This study is compared with prior exams dating back to 2019. TECHNIQUE: Digital breast tomosynthesis is performed in both the craniocaudal and mediolateral oblique views along with computer-aided detection (CAD). Synthesized 2D images are generated from the tomosynthesis. FINDINGS: There are scattered areas of fibroglandular density (ACR BI-RADS breast composition Category b). There are no significant masses, abnormal calcifications, or other abnormalities. There is a tissue marker present in the lateral aspect of the left breast from prior benign percutaneous biopsy. MM/MM tomosynthesis screening BI IMPRESSION: No mammographic evidence of malignancy. ASSESSMENT: BI-RADS BI-RADS 2 - Benign Findings RECOMMENDATION: Routine annual mammography screening. 1 year F/U This examination should not preclude the clinical evaluation of a suspicious palpable abnormality. This patient's information was entered into a reminder system with a target due date for their next mammogram.
== END 2024-05-03 09:49 | disposition home or self-care (01) ==
LOC: HO.MAMMO 09:48
PROVIDERS: Visit Provider Internal Medicine
DX: Z12.31 Encounter for screening mammogram for malignant neoplasm of breast (principal); Z13.820 Encounter for screening for osteoporosis; Z78.0 Asymptomatic menopausal state; M85.89 Other specified disorders of bone density and structure, multiple sites
CPT/HCPCS: 77063; 77067; 77080

== ENCOUNTER 2024-08-23 09:58 | Outpatient (AMB) | payer MEDICARE, SELFPAY ==
--- NOTE | 2024-08-23 10:20 | AM.OFFWIN_ITS ---
Intake Vital Signs 08/23/24 10:21 Height 5 ft 3 in Weight 179 lb BMI 31.7 BP 110/70 Blood Pressure Location Rt brachial Position Sitting Pulse 86 Pulse Source Pulse Oximeter Pulse Oximetry (%) 98 Oxygen Delivery Method Room Air Intake Visit Reasons: EP Cough Intake Note: Patient here for cough that started last Wednesday. Patient Tobacco Use Status: Never used Tobacco Allergies No Known Allergies [No Known Allergies*] Allergy (Unverified 08/23/24 10:21) Do you need a note to return to daycare/school/sports/work: No HPI EP Cough HPI Details This note is constructed using voice recognition software. While every effort has been made to ensure accuracy, medical record coder errors may have been included. The patient is a 69 year old female who presents to the clinic today with cough since Wednesday. She reports that she typically is an asthmatic, that response to her allergies. She had recently been going through her allergies in the last week, when the cough developed. The cough response to her albuterol inhaler, but comes back. She denies fever, chills, body aches, shortness of breath. She had minor nasal congestion which has completely resolved. [facility] Medical History (Updated 02/22/24 @ 02:39 by Mahogany Hopper MD) Mixed anxiety and depressive disorder Seronegative inflammatory arthritis COVID-19 vaccination refused Refused influenza vaccine Reactive airway disease without asthma Claudication of both lower extremities Numbness and tingling of both legs Vitamin D deficiency Annual visit for general adult medical examination with abnormal findings Osteopenia of multiple sites Environmental and seasonal allergies Menopause Surgical menopause History of COVID-19 Arthralgia Intermittent lightheadedness History of uterine fibroid Acquired hypothyroidism Surgical History Hx of colonoscopy History of partial hysterectomy History of tubal ligation Family History Daughter Asthma Thyroid disease Sister Asthma Thyroid disease Mother Alzheimer disease Father FHx: early [place] Social History Housing: Apartment Patient Tobacco Use Status: Never used Tobacco e-Cigarette/Vaping Use: Never Used service: No Current occupational status: disabled Cognitive needs: No Hearing needs: No Vision needs: Yes Review of Systems Const All systems reviewed & are unremarkable except as noted in HPI and below Physical Exam Vital Signs: Last Vital Signs Pulse 86 08/23/24 10:21 BP 110/70 08/23/24 10:21 Pulse Ox 98 08/23/24 10:21 Oxygen Delivery Method Room Air 08/23/24 10:21 BMI result Body Mass Index 31.7 Const General: cooperative, healthy appearing, comfortable and no acute distress Orientation/consciousness: patient oriented x3 Limitations: no limitations HEENT Head: Yes normal to inspection Ears: hearing grossly normal bilaterally, external ears normal and TM abnormal retracted General nose exam: Normal external nose present, No nasal discharge present and Abnormal mucous membranes and turbinates present boggy and pale Face and sinus: Yes normal facial exam and Yes sinuses nontender Mouth: Normal oral and palatal mucosa present and moist mucous membranes Throat: Yes tonsils normal, Yes uvula midline, Yes posterior oropharynx abnormal (Erythema), Yes postnasal drainage and Yes cobblestoning Eyes General: appearance normal, both eyes and all related structures Neck Neck: Yes normal visual inspection Resp Effort & Inspection: normal respiratory effort, able to speak in complete sentences, Actively coughing, no respiratory distress, not tachypneic, no tripod positioning and no use of accessory muscles Auscultation: clear to auscultation bilaterally (But tight sounding) Cardio Rate: regular rate Rhythm: regular rhythm Heart sounds: normal S1 and S2 Skin General skin exam: no rashes or lesions noted Neuro General: patient oriented x3 Extrem General: Yes normal to inspection and Yes no clubbing, cyanosis or edema Assessment & Plan Assessment & Plan (1) Asthma exacerbation: Code(s): J45.901 - Unspecified asthma with (acute) exacerbation Qualifiers: Asthma severity: mild Asthma persistence: intermittent Qualified Code(s): J45.21 - Mild intermittent asthma with (acute) exacerbation Plan: Advised patient to continue albuterol inhaler. She did not require a refill of this at this time. Prescribed prednisone burst for symptomatic management. Advised follow up with worsening symptoms or failure to resolve. Medications: New prednisone 40 mg (2 x 20 mg) PO DAILY 5 days 10 tabs 0RF Coding Level of Care Code Est Pt Level 3 (48154) Diagnoses Mild intermittent asthma with exacerbation J45.21 Asthma severity: mild Asthma persistence: intermittent
[2024-08-23 10:21] VITALS: BP 110/70; PULSE 86; O2SAT 98; BMI 31.7
== END 2024-08-23 10:32 | disposition home or self-care (01) ==
PROVIDERS: PCP Internal Medicine; Visit Provider Registered Nurse
DX: J45.21 Mild intermittent asthma with (acute) exacerbation (principal)

== ENCOUNTER → 2024-08-23 09:58 | Outpatient (BNVA) | payer MEDICARE, SELFPAY | PROVIDERS: PCP Internal Medicine; Visit Provider Registered Nurse | DX: J45.21 Mild intermittent asthma with (acute) exacerbation (principal) | CPT/HCPCS: 99212 ==

== ENCOUNTER 2024-11-24 10:28 | Outpatient (AMB) | payer MEDICARE, SELFPAY ==
[2024-11-24 10:41] VITALS: BP 104/76; PULSE 71; O2SAT 98; BMI 31.9
--- NOTE | 2024-11-24 10:41 | AM.OFFWIN_ITS ---
Intake Vital Signs 11/24/24 10:41 Height 5 ft 3 in Weight 180 lb BMI 31.9 BP 104/76 Blood Pressure Location Lt brachial Position Sitting Pulse 71 Pulse Source Pulse Oximeter Pulse Oximetry (%) 98 Oxygen Delivery Method Room Air Intake Visit Reasons: EP Something inside LT eye Intake Note: Pt is here today for a walk in visit. Pt c/o redness and watery L eye for 4 days now. Patient Tobacco Use Status: Never used Tobacco Allergies No Known Allergies [No Known Allergies*] Allergy (Unverified 11/24/24 10:45) HPI EP Something inside LT eye HPI Details This is a 69-year-old female patient who presents to the walk-in clinic today with report of a 4 day history of left eye irritation. She states that it feels like there is something in her eye. She denies any eye pain or vision changes. She is not a contact lens wear. She denies any morning discharge from eye. States it has been watery. [facility] Medical History Mixed anxiety and depressive disorder Seronegative inflammatory arthritis COVID-19 vaccination refused Refused influenza vaccine Reactive airway disease without asthma Claudication of both lower extremities Numbness and tingling of both legs Vitamin D deficiency Annual visit for general adult medical examination with abnormal findings Osteopenia of multiple sites Environmental and seasonal allergies Menopause Surgical menopause History of COVID-19 Arthralgia Intermittent lightheadedness History of uterine fibroid Acquired hypothyroidism Surgical History Hx of colonoscopy History of partial hysterectomy History of tubal ligation Family History Daughter Asthma Thyroid disease Sister Asthma Thyroid disease Mother Alzheimer disease Father FHx: early [place] Social History Housing: Apartment Patient Tobacco Use Status: Never used Tobacco e-Cigarette/Vaping Use: Never Used service: No Current occupational status: disabled Cognitive needs: No Hearing needs: No Vision needs: Yes Review of Systems Const All systems reviewed & are unremarkable except as noted in HPI and below Physical Exam Vital Signs: Last Vital Signs Pulse 71 11/24/24 10:41 BP 104/76 11/24/24 10:41 Pulse Ox 98 11/24/24 10:41 Oxygen Delivery Method Room Air 11/24/24 10:41 BMI result Body Mass Index 31.9 Const General: cooperative, healthy appearing and no acute distress HEENT Head: Yes normal to inspection Ears: hearing grossly normal bilaterally General nose exam: Normal external nose present Face and sinus: Yes normal facial exam Eyes Visual Mason: normal visual mason by confrontation Alignment and Position: alignment normal Periorbital: periorbital findings normal Eyelids: Yes eyelids normal Conjunctivae: conjunctival abnormal left conjunctival injection diffuse and discharge (clear/watery) Corneas: corneas normal and fluorescein used Pupils: Equal, round and reactive pupils present EOM: EOMs intact bilaterally Direct Ophthalmoscopy: normal light reflex and no photophobia Resp Effort & Inspection: normal respiratory effort and able to speak in complete sentences Skin General skin exam: no rashes or lesions noted Neuro Cranial nerves: Yes Equal, round and reactive pupils present Psych Appearance: grossly normal Mental Status: mental status grossly normal Speech and movement: Normal speech and movement present Assessment & Plan Assessment & Plan (1) Irritation of left eye: Code(s): H57.89 - Other specified disorders of eye and adnexa Plan: Fluorescein eye stain used today, and I did not identify any corneal abrasion, however patient does report a feeling of irritation in her eye. I will start her on erythromycin ointment and reviewed indications, use, and possible side effects of this. We discussed that if she does not improve with treatment, or if she develops any worsening pain or vision changes, she should return for evaluation, likely at emergency department or social insurance administrator. She verbalizes understanding and agrees to plan. Orders: Orders AMB Fluorescein eye exam Today H57.89 - Other specified disorders of eye and adnexa Medications: New erythromycin Apply 0.5 inch to lower lid of left eye 4 times daily for 5 days 1 appl ophthalmic (eye) QID 5 days 3.5 grams 1RF H57.89 - Other specified disorders of eye and adnexa Coding Level of Care Code Est Pt Level 4 (54681) Diagnoses Irritation of left eye H57.89
== END 2024-11-24 11:29 | disposition home or self-care (01) ==
PROVIDERS: PCP Internal Medicine; Visit Provider Nurse Practitioner Family
DX: H57.89 Other specified disorders of eye and adnexa (principal)

== ENCOUNTER → 2024-11-24 10:28 | Outpatient (BNVA) | payer MEDICARE, SELFPAY | PROVIDERS: PCP Internal Medicine | DX: H57.89 Other specified disorders of eye and adnexa (principal) | CPT/HCPCS: 99212 ==

== ENCOUNTER 2024-12-18 11:18 | Outpatient (AMB) | payer MEDICARE, SELFPAY ==
--- NOTE | 2024-12-18 12:57 | MHC.OFFWIV ---
Intake Vital Signs 12/18/24 12:58 Weight 185 lb BP 114/70 Blood Pressure Location Rt brachial Position Sitting Pulse 74 Pulse Source Pulse Oximeter Pulse Oximetry (%) 98 Oxygen Delivery Method Room Air Intake Visit Reasons: EP lt eye pain Intake Note: Patient here for left eye pain/redness and was given oitment for it which helped a little bit but then over the weekend it started up again. Patient Tobacco Use Status: Never used Tobacco Allergies No Known Allergies [No Known Allergies*] Allergy (Unverified 12/18/24 13:01) Do you need a note to return to daycare/school/sports/work: No HPI HPI Comments History of Present Illness Details 69 y/o female patient who presents to the walk in clinic with c/o left eye pain and irritation and redness. She first noticed the symptoms back in Nov 2024, she was seen and treated here with Erythromycin Ointment with no relief. Denies vision changes. Denies headaches, dizziness, nausea or vomiting. [facility] Medical History Mixed anxiety and depressive disorder Seronegative inflammatory arthritis COVID-19 vaccination refused Refused influenza vaccine Reactive airway disease without asthma Claudication of both lower extremities Numbness and tingling of both legs Vitamin D deficiency Annual visit for general adult medical examination with abnormal findings Osteopenia of multiple sites Environmental and seasonal allergies Menopause Surgical menopause History of COVID-19 Arthralgia Intermittent lightheadedness History of uterine fibroid Acquired hypothyroidism Surgical History Hx of colonoscopy History of partial hysterectomy History of tubal ligation Family History Daughter Asthma Thyroid disease Sister Asthma Thyroid disease Mother Alzheimer disease Father FHx: early [place] Social History Housing: Apartment Patient Tobacco Use Status: Never used Tobacco e-Cigarette/Vaping Use: Never Used service: No Current occupational status: disabled Cognitive needs: No Hearing needs: No Vision needs: Yes Review of Systems Const All systems reviewed & are unremarkable except as noted in HPI and below Physical Exam Vital Signs: Last Vital Signs Pulse 74 12/18/24 12:58 BP 114/70 02/10/25 12:58 Pulse Ox 98 12/18/24 12:58 Oxygen Delivery Method Room Air 12/18/24 12:58 Const General: cooperative, comfortable and no acute distress Orientation/consciousness: patient oriented x3 HEENT Head: Yes normocephalic Ears: external ears normal and TM abnormal with fluid behind the TM bilateral Face and sinus: Yes sinus tenderness Mouth: moist mucous membranes Eyes Eyelids: Yes eyelids normal Conjunctivae: conjunctival abnormal left conjunctival injection diffuse and diffuse Pupils: Equal, round and reactive pupils present EOM: EOMs intact bilaterally Neuro General: patient oriented x3 Cranial nerves: Yes Equal, round and reactive pupils present Assessment & Plan Assessment & Plan (1) Allergic conjunctivitis: Code(s): H10.10 - Acute atopic conjunctivitis, unspecified eye Qualifiers: Laterality: left Qualified Code(s): H10.12 - Acute atopic conjunctivitis, left eye Plan: Advised To follow up with her Campaign Marketing Manager Acid Painter vs viral conjunctivitis. Coding Level of Care Code Est Pt Level 3 (38858) Diagnoses Allergic conjunctivitis of left eye H10.12 Laterality: left Time Spent (min) 15
[2024-12-18 12:58] VITALS: BP 114/70; PULSE 74; O2SAT 98
== END 2024-12-18 13:35 | disposition home or self-care (01) ==
PROVIDERS: PCP Internal Medicine; Visit Provider Nurse Practitioner Family
DX: H10.12 Acute atopic conjunctivitis, left eye (principal)

== ENCOUNTER → 2024-12-18 11:18 | Outpatient (BNVA) | payer MEDICARE, SELFPAY | PROVIDERS: PCP Internal Medicine | DX: H10.12 Acute atopic conjunctivitis, left eye (principal) | CPT/HCPCS: 99212 ==

== ENCOUNTER 2025-02-19 08:46 | Outpatient (AMB) | payer MEDICARE, SELFPAY ==
--- OUTSIDE RECORDS SUMMARY | 2025-02-19 09:27 | XMS_ITS | Clinical Summary ---
Author Organization [employer] it Address [address] [place] [address] Care Team Providers Care Seed Laboratory Assistant Name Role Phone Mahogany Hopper MD Primary Care Provider Surgical History Surgery Date Site/Laterality Comments HYSTERECTOMY 23 year ago PROCEDURE: HISTORICAL HYSTERECTOMY; COMMENT: due to fibroids COLONOSCOPY 05/29/2016 PROCEDURE: HISTORICAL COLONOSCOPY; COMMENT: Dr. Maryann mustafa, o/w negative. Repeat 10 years ESOPHAGOGASTRODUODENOSCOPY 01/20/2018 PROCEDURE: [place] ESOPHAGOGASTRODUODENOSCOPY TRANSORAL DIAGNOSTIC; COMMENT: nodular gastritis and mild bulbar erythema; small HH and irregular Z line; no Malhotra's or H. pylori; mild gastric intestinal metaplasia BREAST BIOPSY PROCEDURE: BX BREAST; PERC NEEDLE CORE W/IMAG GUID; COMMENT: pt states lt side Medical History Medical History Date Comments Hypothyroidism 03/23/2016 DX:Hypothyroidis m Reflux esophagitis 03/23/2016 DX:Reflux eso phagitis H/O hiatal hernia 03/23/2016 DX:H/O hiatal hernia Diverticulitis of intestine with abscess without bleeding 03/23/2016 DX:Diverticulitis of intesti ne with abscess without bleeding Nephrolithiasis 04/07/2016 DX:Nephrolithias is Meralgia paresthetica of right side 04/07/2016 DX:Meralgia paresthetica of right side Morbid obesity (CMS/HCC V24, CMS/HCC V28) 04/07/2016 DX:Morbid obesity (HCC) Diverticulosis large intesti ne w/o perforation or abscess w/bleeding 03/23/2016 DX:Diverticulosis la rge intestine w/o perforation or abscess w/bleeding H. pylori infection 08/08/2017 DX:H. pylori infection Mild intermittent asthma wit hout complication 09/22/2018 DX:Mild intermittent asthma without complication Family History Medical History Relation Name Comments Other cancer Mother ?ovarian Breast cancer Neg Hx Relation Name Status Comments Brother 1 car accident Brother 2 Alive Brother 3 Alive Brother 4 Alive Daughter 1 Alive Daughter 2 Alive nephrolithiasis Father (Age 55) MS Mother (Age 98) Sister 1 Alive Sister 2 Alive Sister 3 Alive Son Alive Social History Tobacco Use Types Packs/Day Years Used Date Smoking Tobacco: Never Smokeless Tobacco: Never Alcohol Use Standard Drinks/Week Comments No 0 (1 standard drink = 0.6 oz pur e alcohol) Comments Unknown Sex and Gender Information Value Date Recorded Sex Assigned at Not on file Legal Sex Female 12:40 PM EST Gender Identity Not on file Sexual Orientation Not on file Obstetrics History Plan of Treatment Health Maintenance Due Date Last Done Comments Zoster Vaccines (1 of 2) 2003 RSV Immunization Adult Patients (1 - Risk 60-74 years 1-dose series) 2013 Breast Cancer Screening 01/30/2021 01/30/2019 Colorectal Cancer Screening: Colonoscopy 10/17/2022 Depression Screening 10/17/2022 Falls Risk Assessment 10/17/2022 Hepatitis C Screening 10/17/2022 Social Influencers of Health Screening 10/17/2022 COVID-19 Vaccine (2023-2 5 season) 2024 Influenza Vaccine (Season Ended) 2025 DTaP,Tdap,and Td Vaccines (2 - Td or Tdap) 07/15/2026 07/15/2016 Osteoporosis Screening (Bone Density Screening) 01/16/2029 01/16/2019 Pneumococcal Vaccine: 50+ Years Completed 10/14/2021, 09/22/2018 HIB Vaccines Aged Out No longer eligi ble based on patient's age to complete this topic HPV Vaccines Aged Out No longer eligi ble based on patient's age to complete this topic Hepatitis A Vaccines Aged Out No long er eligible based on patient's age to complete this topic Hepatitis B Vaccines Aged Out No long er eligible based on patient's age to complete this topic IPV Vaccines Aged Out No longer eligi ble based on patient's age to complete this topic MMR Vaccines Aged Out No longer eligi ble based on patient's age to complete this topic Meningococcal ACWY Vaccine Aged Out N o longer eligible based on patient's age to complete this topic Meningococcal B Vaccine Aged Out No l onger eligible based on patient's age to complete this topic RSV Immunization Patients Under 20 months Aged Out No longer eligible b ased on patient's age to complete this topic Varicella Vaccines Aged Out No longer eligible based on patient's age to complete this topic Procedures Procedure Name Priority Date/Time Associated Diagnosis Comments SCR MAMMO BI INCL CAD Routine 01/30/2019 10:31 AM EDT Encounter for screening mammogram for malignant neoplasm of breast DXA BONE DENSITY STUDY 1+ SITS AXIAL SKEL Routine 01/16/2019 3:40 PM EDT Encounter for screening for osteoporosis from Last 3 Months or Most Recently Relevant to Health Maintenance Results * SCR MAMMO BI INCL CAD (01/30/2019 10:31 AM EDT) Anatomical Region Laterality Modality Radiographic Chastity ging 01/26/2019 1:21 PM EDT Narrative 01/30/2019 3:59 PM EDT This is a summary report. The complete report is available in the patient's medical record. If you cannot access the medical record, please contact the sending organization for a detailed fax or copy. Full field digital screening mammography, reviewed with CAD and compared to previous. The breast tissue is heterogeneously dense, limiting sensitivity. No suspicious mass, architectural distortion or suspicious calcifications are identified. Previously biopsied benign nodule with associated microclip in the anterior left breast is again noted. IMPRESSION: : Dense breast tissue, limiting the sensitivity of mammography. No mammographic evidence of malignancy. BIRADS 2-benign 5 year breast cancer risk assessment 1.0 % Lifetime breast cancer risk assessment 4.0 % Breast cancer risk category Low (<15%) Procedure Note Rita Velasquez MD - 10/27/2022 This is a summary report. The complete report is available in thepatient's medical record. If you cannot access the medical record, pleasecontact the sending organization for a detailed fax or copy. Full field digital screening mammography, reviewed with CAD and comparedto previous. The breast tissue is heterogeneously dense, limitingsensitivity. No suspicious mass, architectural distortion or suspiciouscalcifications are identified. Previously biopsied benign nodule with associated microclip in theanterior left breast is again noted. IMPRESSION: : Dense breast tissue, limiting the sensitivity of mammography. Nomammographic evidence of malignancy. BIRADS 2-benign 5 year breast cancer risk assessment 1.0 % Lifetime breast cancer risk assessment 4.0 % Breast cancer risk category Low (<15%) us Marce Bowling MD IMStefan XR PROCEDURES Final Result * DXA BONE DENSITY STUDY 1+ SITS AXIAL SKEL (01/16/2019 3:40 PM EDT) Anatomical Region Laterality Modality Bone Densitometr y 09/22/2018 1:32 PM EST Narrative 01/16/2019 4:04 PM EDT DEXA SCAN: Lumbar Spine T-score is -1.1. ?? (SD relative to 20-29 y/o adult) Z-score is +0.7. ??(SD relative to age matched peers) This is considered osteopenia by WHO criteria. Left Femoral Neck T-score is -0.9. Z-score is +0.4. This is considered normal bone density by WHO criteria. Comparison exam(s): None available. IMPRESSION: Osteopenia by WHO criteria. This patient has a 8.3% risk of major osteoporotic fracture and a 0.3% risk of hip fracture over the next 10 years. (World Health Organization Fracture Risk Assessment) The [facility] Department of Internal Medicine recommends using National Osteoporosis Foundation (NOF) guidelines in treatment decisions related to osteoporosis. NOF guidelines suggest considering treatment for postmenopausal women and men aged 50 or older presenting with the following: History of hip or vertebral fracture. T-score = -2.5 (DXA) at the femoral neck, total hip, or spine, after appropriate evaluation to exclude secondary causes. Low bone mass (T-score between -1.0 and -2.5 at the femoral neck or spine) AND a 10-year probability of a hip fracture = 3% OR a 10-year probability of a major osteoporosis-related fracture = 20% based on the [place]-adapted WHO algorithm Please note that all treatment decisions require clinical judgment and consideration of individual patient factors, including patient preferences, co-morbidities, previous drug use, risk factors not captured in the FRAX model (e.g., frailty, falls, vitamin D deficiency, increased bone turnover, interval significant decline in bone density) and possible under- or over-estimation of fracture risk by FRAX. Optional alternative screening schedule based on rea Stevens., [employer] [facility] November 26, 2011 for patients with osteopenia (based on hip BMD T-score) is as follows: * ??advanced osteopenia (T scores -2.00 to -2.49), BMD testing every year * ??moderate osteopenia (T scores -1.50 to -1.99), BMD testing every 5 years mild osteopenia or normal BMD (T scores -1.50 and higher), BMD testing every 15 years Procedure Note Linda Hogue, DO - 10/27/2022 DEXA SCAN: Lumbar Spine T-score is -1.1. (SD relative to 20-29 y/o adult) Z-score is +0.7. (SD relative to age matched peers) This is considered osteopenia by WHO criteria. Left Femoral Neck T-score is -0.9. Z-score is +0.4. This is considered normal bone density by WHO criteria. Comparison exam(s): None available. IMPRESSION: Osteopenia by WHO criteria. This patient has a 8.3% risk of majorosteoporotic fracture and a 0.3% risk of hip fracture over the next 10 years. (WorldHealth Organization Fracture Risk Assessment) The [facility] Department of Internal Medicine recommendsusing National Osteoporosis Foundation (NOF) guidelines in treatment decisions related toosteoporosis. NOF guidelines suggest considering treatment for postmenopausal women and menaged 50 or older presenting with the following: History of hip or vertebral fracture. T-score = -2.5 (DXA) at the femoral neck, total hip, or spine, afterappropriate evaluation to exclude secondary causes. Low bone mass (T-score between -1.0 and -2.5 at the femoral neck or spine)AND a 10-year probability of a hip fracture = 3% OR a 10-year probability of a majorosteoporosis-related fracture = 20% based on the [place]-adapted WHO algorithm Please note that all treatment decisions require clinical judgment andconsideration of individual patient factors, including patient preferences, co- morbidities,previous drug use, risk factors not captured in the FRAX model (e.g., frailty, falls, vitaminD deficiency, increased bone turnover, interval significant decline in bone density) andpossible under- or over-estimation of fracture risk by FRAX. Optional alternative screening schedule based on rea Stevens., NEJMJanuary 2011 for patients with osteopenia (based on hip BMD T-score) is as follows: * advanced osteopenia (T scores -2.00 to -2.49), BMD testing every year * moderate osteopenia (T scores -1.50 to -1.99), BMD testing every 5years mild osteopenia or normal BMD (T scores -1.50 and higher), BMD testingevery 15 years Marce Bowling MD IMG DXA PROCEDURES Jacklyn l Result from Last 3 Months or Most Recently Relevant to Health Maintenance Care Teams Seed Laboratory Assistant Relationship Specialty Start Date End Date Mahogany Hopper MD [address] [place] [address] PCP - General Internal Medicine 05/15/22
[2025-02-19 10:04] VITALS: BP 110/80; PULSE 76; RESP 15; TEMP 36.6; O2SAT 99; BMI 32.4
--- NOTE | 2025-02-19 10:05 | AM.OFFVISMDC ---
Intake Vital Signs 02/19/25 10:04 Height 5 ft 3 in Weight 183 lb BMI 32.4 BP 110/80 Blood Pressure Location Lt brachial Position Sitting Respiration 15 Pulse 76 Pulse Source Pulse Oximeter Temp 97.9 F Temp Source Oral Pulse Oximetry (%) 99 Oxygen Delivery Method Room Air Intake Visit Reasons: AWV-Subsequent Intake Note: Pt is here today for her AWV: last mammogram 05/03/24, bone density scan 05/03/24 Allergies No Known Allergies [No Known Allergies*] Allergy (Unverified 02/19/25 10:29) Medication List - Last Reconciled 02/19/25 by Mahogany Hopper MD albuterol sulfate 90 mcg/actuation (Ventolin HFA) 2 puffs inhalation Q4H PRN arm brace (Wrist Brace Medium) As directed cane use As directed escitalopram oxalate 10 mg PO DAILY ibuprofen-acetaminophen 125-250 mg (Advil Dual Action) 1 tab PO Q8H PRN lansoprazole 15 mg PO QAM PRN levocetirizine 5 mg PO QPM PRN levothyroxine 75 mcg PO DAILY [Rollator Walker with seat As directed Right knee O/A stability with ambulation ] HPI AWV-Subsequent HPI Details AWV ? 69 year old with history mixed anxiety depression, history of negative inflammatory arthritis, reactive airway disease with asthma, osteopenia in multiple sites, osteoarthritis, environmental and seasonal allergies, GERD with esophagitis, and acquired hypothyroidism, presents for her ? Annual Wellness Visit, initial visit.? She is up-to-date with her breast cancer screening, last done 05/03/2024 with benign findings. She also had a bone density scan that time which showed presence of osteopenia in multiple sites. Patient states that she had a screening colonoscopy done in [place] in 2016 and was told that it was normal, requested copy of results. Had a normal fasting lipid screening done 02/15/2023 and screening for diabetes was done 02/23/2024 which came back within normal limit. She is up-to-date with her pneumonia vaccination and Tdap but does not want to get flu, Shingrix or COVID vaccine. ? Medical / Social History Reviewed? Past Medical History ?Yes . ? [place] of Care / Care Team list updated ?Yes . ? Surgical/Hospitalization History ?Yes . ? Current Medications (including OTC and supplements) ?Yes . ? Family History ?Yes . ? Tobacco Control form ?Yes . ? AUDIT-C (Alcohol use) form ?Yes . ? Illicit drug use in Social History ?Yes . ? Current diagnosis of depression? Yes, currently on escitalopram oxalate 10 mg daily ? Appropriate PHQ2/PHQ9 completed ?Yes . ? Data entered by ?Environmental Protection Economist and reviewed by provider ? Fall Risk ? Fall History? Have you had any falls with injury in the past year? ?No . ? Have you had two or more falls in the past year? ?No . ? Fall Risk Assessment: ?No falls in the past year . ? HRA filled out by the patient, reviewed by Provider and scanned. ?AWV ? Balance? Romberg negative. ? Tandem walk ?Yes . ? Walk and Turn ?Yes . ? Rise from sit to stand ?Yes . ?Vision? Corrective lens ?Yes ? Vision screen ? Up-to-date, [facility] [place] ?Hearing? Whisper test ?failed whisper test ?Written Plan?Completed. See Patient Documents.? [facility] Medical History (Updated 02/21/25 @ 17:00 by Mahogany Hopper MD) Mixed anxiety and depressive disorder Seronegative inflammatory arthritis COVID-19 vaccination refused Refused influenza vaccine Reactive airway disease without asthma Claudication of both lower extremities Numbness and tingling of both legs Vitamin D deficiency Annual visit for general adult medical examination with abnormal findings Osteopenia of multiple sites Environmental and seasonal allergies Menopause Surgical menopause History of COVID-19 Arthralgia History of uterine fibroid Acquired hypothyroidism Surgical History Hx of colonoscopy History of partial hysterectomy History of tubal ligation Family History Daughter Asthma Thyroid disease Sister Asthma Thyroid disease Mother Alzheimer disease Father FHx: early [place] Social History Housing: Apartment Patient Tobacco Use Status: Never used Tobacco e-Cigarette/Vaping Use: Never Used service: No Current occupational status: disabled Cognitive needs: No Hearing needs: No Vision needs: Yes Questionnaire Medicare Wellness Checkup [age] What gender do you identify with?: female During the past 4 weeks, how much have you been bothered by emotional problems such as feeling anxious, depressed, irritable, sad or downhearted, and blue?: moderately During the past 4 weeks, has your physical & emotional health limited your social activities with family, friends, neighbors, or groups?: not at all During the past 4 weeks, how much bodily pain have you generally had?: severe pain During the past 4 weeks, was someone available to help you if you needed & wanted help?: yes, as much as I wanted During the past 4 weeks, what was the hardest physical activity you could do for at least 2 minutes?: moderate Can you get to places out of walking distance without help? (For eg., can you travel alone on buses, taxis or drive your car?): No Can you go shopping for groceries or clothes without someone's help?: No Can you prepare your own meals?: Yes Can you do your housework without help?: No Because of any health problems, do you need the help of another person with your personal care needs such as eating, bathing, dressing or getting around the house?: Yes Can you handle your own money without help?: Yes During the past 4 weeks, how would you rate your health in general?: good During the past 4 weeks how have things been going for you?: good & bad parts about equal Are you having difficulties driving your car?: not applicable, I don't use a car Do you always fasten your seat belt when you are in a car?: yes, usually During past 4 weeks, have you been bothered by the following: never: Sexual problems? and Teeth or denture problems? and sometimes: Falling or dizzy when standing up, Trouble eating well?, Problems using the telephone? and Tiredness or fatigue? Have you fallen 2 or more times in the past year?: Yes Are you a smoker?: no During the past 4 weeks, how many drinks of wine, beer, or other alcoholic beverages did you have?: no alcohol at all Do you exercise for about 20 minutes 3 or more times a week?: no, I usually do not exercise this much Have you been given information to help with the following?: yes: Keeping track of your medications? and no: Hazards in your house that might hurt you? How often do you have trouble taking medicines the way you have been told to take them?: I always take medicine as prescribed How confident are you that you can control & manage most of your health problems?: very confident What is your race?: or origin or descent Mini Mental State Exam (MMSE) Orientation What is the (year) (season) (date) (day) (month)?: year (2024), season (spring), date (02/19/2025), day (wednesday) and month (february) Where are we (state) (county) (town or city) (hospital) (floor)?: state ([place]), county ([place]), town or city ([place]) and hospital/clinic ([facility]) Score Score: 9 Activity of Daily Living Bathing - sponge bath, tub bath or shower: receives no assistance (gets in/out by self, if usual bathing means Dressing - getting clothes from closets & drawers, including inner/outer garments & fasteners.: gets clothes & gets completely dressed without help Toileting - going to the 'toilet room' for urine/bowel elimination & cleaning self/arranging clothes: goes to toilet room, cleans self, arranges clothes without help Transfer: moves in & out of bed and chair without help (may use support object) Continence: has occasional 'accidents' Feeding: feeds self without help Total Score: 0 Information obtained from: patient Using telephone: independent Traveling: needs assistance Shopping: needs assistance Preparing meals: needs assistance Housework: needs assistance Taking medicine: independent Managing money: independent PHQ-9 Over the last 2 weeks, how often have you been bothered by any of the following problems? 1. Little interest or pleasure in doing things: not at all 2. Feeling down, depressed, or hopeless: not at all 3. Trouble falling or staying asleep, or sleeping too much: not at all 4. Feeling tired or having little energy: not at all 5. Poor appetite or overeating: not at all 6. Feeling bad about yourself - or that you are a failure or have let yourself or your family down: not at all 7. Trouble concentrating on things, such as reading the newspaper or watching television: not at all 8. Moving or speaking so slowly that other people could have noticed. Or the opposite - being so fidgety or restless that you have been moving around a lot more than usual: not at all 9. Thoughts that you would be better off or of hurting yourself in some way: not at all Total score: 0 Depression Screening Interpretation: Negative Depression Screening Done: Yes 81882 - PHQ-9 Billing: Yes Source: Developed by Drs. Carlos Goldstein, Yadira Long, Tigre Esquivel and colleagues, with an educational nayely from [employer]. Physical Exam Vital Signs: Last Vital Signs Temp 97.9 F 04/14/25 10:04 Pulse 76 02/19/25 10:04 Resp 15 02/19/25 10:04 BP 110/80 02/19/25 10:04 Pulse Ox 99 02/19/25 10:04 Oxygen Delivery Method Room Air 02/19/25 10:04 BMI result Body Mass Index 32.4 Assessment & Plan Assessment & Plan (1) Encounter for initial annual wellness visit (AWV) in Medicare patient: Code(s): Z00.00 - Encounter for general adult medical examination without abnormal findings Plan: Medical wellness checklist reviewed, discussed with patient and updated. (2) Seronegative inflammatory arthritis: Comment: sees Dr Sarmad Diaz Code(s): M13.80 - Other specified arthritis, unspecified site Plan: Takes Tylenol as needed (3) Osteoarthritis of right knee: Code(s): M17.11 - Unilateral primary osteoarthritis, right knee Plan: Takes Tylenol as needed, prescription sent for shower chair and l Quad cane , per pt request (4) Mixed anxiety and depressive disorder: Comment: Sees Frank Thomas Code(s): F41.8 - Other specified anxiety disorders Plan: Currently on escitalopram (5) Osteopenia of multiple sites: Comment: Bone density scan done February 2022 Code(s): M85.89 - Other specified disorders of bone density and structure, multiple sites Plan: Up-to-date with bone density scan, due for recheck in 2025 (6) Environmental and seasonal allergies: Code(s): J30.89 - Other allergic rhinitis Plan: Currently on levocetirizine (7) Acquired hypothyroidism: Code(s): E03.9 - Hypothyroidism, unspecified Plan: Currently taking levothyroxine 75 mcg daily (8) GERD with esophagitis: Code(s): K21.00 - Gastro-esophageal reflux disease with esophagitis, without bleeding Plan: Stop lansoprazole, prescription sent for famotidine 40 mg taken once a day as needed only for episodes of heart burn Medications: New famotidine 40 mg PO DAILY PRN 90 tabs 0RF heartburn Shower Chair As directed 1 ea 0RF M13.80 - Other specified arthritis, unspecified site, M17.11 - Unilateral primary osteoarthritis, right knee [quad cane] As directed 1 ea 0RF osteoarthritis M13.80 - Other specified arthritis, unspecified site Discontinued lansoprazole Discontinued Reason: Doctor's Order 15 mg PO QAM PRN 90 caps 0RF heartburn Quality Reporting (2019) Depression/Bipolar (159/160/161/177) PHQ-9: Total score: 0 Coding Level of Care Code Medicare First (G0438) Diagnoses Encounter for initial annual wellness visit (AWV) in Medicare patient Z00.00 Seronegative inflammatory arthritis M13.80 Osteoarthritis of right knee M17.11 Mixed anxiety and depressive disorder F41.8 Osteopenia of multiple sites M85.89 Environmental and seasonal allergies J30.89 Acquired hypothyroidism E03.9 GERD with esophagitis K21.00 CPT Codes Advance Care Planning - Time spent: 16-45 minutes ([id number]) Additional Codes PHQ-9 - 16444 - PHQ-9 Billing: Yes ([id number]) Advance Care Planning Advance Care Planning discussion: Completed/Scanned Date of discussion: 02/19/25 Who was present: patient Forms completed: Health Care Proxy and MOLST Time spent: 16-45 minutes Actual minutes spent: 16
== END 2025-02-19 10:52 | disposition home or self-care (01) ==
LOC: HO.HMCC 08:46
PROVIDERS: Visit Provider Internal Medicine
DX: Z00.00 Encounter for general adult medical examination without abnormal findings (principal); M17.11 Unilateral primary osteoarthritis, right knee; F41.8 Other specified anxiety disorders; M85.89 Other specified disorders of bone density and structure, multiple sites; J30.89 Other allergic rhinitis; E03.9 Hypothyroidism, unspecified; K21.00 Gastro-esophageal reflux disease with esophagitis, without bleeding

== ENCOUNTER → 2025-02-19 08:46 | Outpatient (BNVA) | payer MEDICARE, SELFPAY | PROVIDERS: Visit Provider Internal Medicine | DX: Z00.00 Encounter for general adult medical examination without abnormal findings (principal); M17.11 Unilateral primary osteoarthritis, right knee; F41.8 Other specified anxiety disorders; M85.89 Other specified disorders of bone density and structure, multiple sites; J30.89 Other allergic rhinitis; E03.9 Hypothyroidism, unspecified; K21.00 Gastro-esophageal reflux disease with esophagitis, without bleeding | CPT/HCPCS: 96127; 99497 ==

== ENCOUNTER 2025-03-21 09:46 | Outpatient (REF) | payer MEDICARE, SELFPAY ==
--- OUTSIDE RECORDS SUMMARY | 2025-03-21 10:27 | XMS_ITS | Clinical Summary ---
Author Organization [facility] it Address [address] [place] [address] Care Team Providers Care Tube Builder Airplane Name Role Phone Mahogany Hopper MD Primary Care Provider [phone] Surgical History Surgery Date Site/Laterality Comments HYSTERECTOMY 23 year ago PROCEDURE: HISTORICAL HYSTERECTOMY; COMMENT: due to fibroids COLONOSCOPY 05/29/2016 PROCEDURE: HISTORICAL COLONOSCOPY; COMMENT: Dr. Maryann mustafa, o/w negative. Repeat 10 years ESOPHAGOGASTRODUODENOSCOPY 01/20/2018 PROCEDURE: [place] ESOPHAGOGASTRODUODENOSCOPY TRANSORAL DIAGNOSTIC; COMMENT: nodular gastritis and [...] (World Health Organization Fracture Risk Assessment) [facility] Department of Internal Medicine recommends using National [...] alternative screening schedule based on rea Stevens., [facility] November 26, 2011 for patients with osteopenia [...] years. (WorldHealth Organization Fracture Risk Assessment) [facility] Department of Internal Medicine recommendsusing National Osteoporosis [...] Recently Relevant to Health Maintenance Care Teams Tube Builder Airplane Relationship Specialty Start Date End Date Mahogany Hopper MD [address] [place] [address] PCP - General Internal Medicine 05/15/22
[2025-03-21 14:28] LABS: Alanine Aminotransferase 24 U/L (0-31); Anion Gap 13 (12-20); Aspartate Amino Transferase 28 U/L (5-31); Blood Urea Nitrogen 20 mg/dL (9-16); Calcium 9.1 mg/dL (8.4-10.2); Carbon Dioxide 25 mmol/L (22-29); Chloride 107 mmol/L (96-108); Cholesterol 185 mg/dL (<200); Estimated Glomerular Filt Rate > 60; Glucose Fasting 88 mg/dL (60-99); HDL Cholesterol 65 mg/dL (>40); LDL Cholesterol Calculated 109 mg/dL (<100); Potassium 4.1 mmol/L (3.3-5.1); Sodium 141 mmol/L (135-145); Triglycerides 55 mg/dL (<150)
[2025-03-21 14:30] LABS: Free T4 (Free Thyroxine) 1.11 ng/dL (0.71-1.85); Thyroid Stimulating Hormone 1.56 uIU/mL (0.32-4.0); Vitamin D 25-OH Total 47.6 ng/mL (>30)
== END 2025-03-21 09:47 | disposition home or self-care (01) ==
LOC: HO.HMGCLDS 09:46
PROVIDERS: PCP Internal Medicine; Visit Provider Internal Medicine
DX: M85.89 Other specified disorders of bone density and structure, multiple sites (principal); K21.00 Gastro-esophageal reflux disease with esophagitis, without bleeding; E89.40 Asymptomatic postprocedural ovarian failure; E03.9 Hypothyroidism, unspecified
CPT/HCPCS: 36415; 80048; 80061; 82306; 84439; 84443; 84450; 84460

== ENCOUNTER 2025-07-05 11:35 | Outpatient (REF) | payer MEDICARE, SELFPAY ==
--- NOTE | ~2025-07-05 | MM_ITS ---
EXAMINATION: MM SCREENING DIGITAL BREAST TOMOSYNTHESIS, BILATERAL CLINICAL INFORMATION: Screening. Asymptomatic. COMPARISON: Comparison made to multiple prior, most recent May 03, 2024, and most remote January 30, 2019. TECHNIQUE: Digital breast tomosynthesis is performed in mediolateral oblique and craniocaudal views along with computer-aided detection (CAD). FINDINGS: BREAST COMPOSITION: There are scattered areas of fibroglandular density (ACR BI-RADS breast composition Category b). RIGHT BREAST: 2 focal asymmetries in the lateral breast at approximately 9:00 axis anterior/middle depth, measuring 0.7 cm and containing a punctate calcification, at about 4-6 cm from the nipple (MLO 18/66, CC 16/68) and measuring 0.4 cm at 3 to 4 cm from the nipple (MLO 18/66, CC 15/68). No suspicious calcifications or other abnormalities are seen. LEFT BREAST: Tissue marker from previous needle core biopsy. No significant masses, suspicious calcifications or other abnormalities are seen. MM/MM tomosynthesis screening BI IMPRESSION: RIGHT BREAST: 2 focal asymmetries in the lateral breast anterior/middle depth. LEFT BREAST: Benign, no mammographic evidence of malignancy. Normal interval follow-up is recommended in 12 months. ASSESSMENT: BI-RADS 0 - Incomplete: Needs additional Imaging. RECOMMENDATION: 1. Additional views of the right breast 2. Targeted ultrasound if warranted after review of the additional views. 3. Radiology department staff will contact the patient for additional imaging. FOLLOW-UP: Additional Imaging required This examination should not preclude the clinical evaluation of a suspicious palpable abnormality. This patient's information was entered into a reminder system with a target due date for their next mammogram. Electronically signed by: Patel Gamble MD 07/07/2025 05:53 PM EDT
--- OUTSIDE RECORDS SUMMARY | 2025-07-05 12:51 | XMS_ITS | Clinical Summary ---
Author Organization [facility] it Address [address] [place] [address] Care Team Providers Care Tea Room Manager Name Role Phone Mahogany Hopper MD Primary Care Provider Surgical History Surgery Date Site/Laterality Comments HYSTERECTOMY 23 year ago PROCEDURE: HISTORICAL HYSTERECTOMY; COMMENT: due to fibroids COLONOSCOPY 05/29/2016 PROCEDURE: HISTORICAL COLONOSCOPY; COMMENT: Dr. Maryann mustafa, o/w negative. Repeat 10 years ESOPHAGOGASTRODUODENOSCOPY 01/20/2018 PROCEDURE: [place] ESOPHAGOGASTRODUODENOSCOPY TRANSORAL DIAGNOSTIC; COMMENT: nodular gastritis and [...] Daughter 2 Alive nephrolithiasis Father (Age 55) [place] Mother (Age 98) Sister 1 Alive Sister [...] 01/30/2021 01/30/2019 Colorectal Cancer Screening: Colonoscopy 10/17/2022 Falls Risk Assessment 10/17/2022 Hepatitis C Screening 10/17/2022 Social Influencers of Health Screening 10/17/2022 COVID-19 Vaccine (1 - 2023-2 5 season) 2024 Depression Screening 11/08/2024 Influenza Vaccine (#1) 2025 DTaP,Tdap,and Td Vaccines (2 - Td [...] % Breast cancer risk category Low (<15%) Marce Bowling MD IMStefan XR PROCEDURES Final [...] (World Health Organization Fracture Risk Assessment) [facility] Department of Internal Medicine recommends using [...] alternative screening schedule based on rea Stevens., [facility] November 26, 2011 for patients with osteopenia [...] years. (WorldHealth Organization Fracture Risk Assessment) [facility] Department of Internal Medicine recommendsusing National [...] FRAX. Optional alternative screening schedule based on alicia Stevens al., [place] for patients with osteopenia (based on [...] Recently Relevant to Health Maintenance Care Teams Tea Room Manager Relationship Specialty Start Date End Date Mahogany Hopper MD [address] [place] [address] PCP - General Internal Medicine 05/15/22
== END 2025-07-05 11:36 | disposition home or self-care (01) ==
LOC: HO.MAMMO 11:35
PROVIDERS: PCP Internal Medicine; Visit Provider Internal Medicine
DX: Z12.31 Encounter for screening mammogram for malignant neoplasm of breast (principal)
CPT/HCPCS: 77063; 77067

== ENCOUNTER → 2025-07-05 11:45 | Outpatient (BNV) | payer MEDICARE, SELFPAY | PROVIDERS: PCP Internal Medicine; Visit Provider Radiology Body Imaging | DX: Z12.31 Encounter for screening mammogram for malignant neoplasm of breast (principal) | CPT/HCPCS: 77063; 77067 ==

== ENCOUNTER 2025-08-09 12:58 | Outpatient (REF) | payer MEDICARE, SELFPAY ==
--- NOTE | ~2025-08-09 | MM_ITS ---
EXAMINATION: MM DIAGNOSTIC DIGITAL BREAST TOMOSYNTHESIS, RIGHT Limited right breast ultrasound. CLINICAL INFORMATION: Call back from screening for right breast asymmetries. COMPARISON: Mammography: Priors on PACS. TECHNIQUE: Digital breast tomosynthesis is performed in both the craniocaudal and mediolateral oblique views along with computer-aided detection (CAD). Synthesized 2D images are generated from the tomosynthesis. FINDINGS: The breasts are heterogeneously dense, which may obscure small masses. Previously seen asymmetries in the retroareolar region the right breast persists on additional imaging projections. No suspicious calcifications or other abnormal findings. Targeted color Doppler ultrasound scanning from 10-1 o'clock and in the retroareolar region demonstrates a hypoechoic oval circumscribed solid mass at 11-12 o'clock 2 7 m from nipple measuring 3 x 3 x 4 mm this correlates with one of the circumscribed oval masses in the retroareolar region on mammography. There is an adjacent hypoechoic oval solid mass at 11-12 o'clock 2 7 m from the nipple measuring 7 x 4 x 8 mm which likely accounts for the other asymmetry seen on mammography. MM/MM tomosynthesis added views R IMPRESSION: 2 hypoechoic oval circumstance solid masses at 11:00 to 12:00 2 cm from the nipple. Recommend 6 month follow-up ultrasound for further evaluation of stability. ASSESSMENT: BI-RADS Category 3: Probably benign RECOMMENDATION: 6 Month F/U Results were provided to the patient at time of visit by the technologist. This patient's information was entered into a reminder system with a target due date for their next mammogram. Electronically signed by: Unique Pryor DO 08/09/2025 02:16 PM EDT
--- OUTSIDE RECORDS SUMMARY | 2025-08-09 14:24 | XMS_ITS | Clinical Summary ---
Author Organization [employer] [facility] it Address [address] [place] [address] Care Team Providers Care Promotions Associate Name Role Phone Mahogany Hopper MD Primary Care Provider Surgical History Surgery Date Site/Laterality Comments HYSTERECTOMY 23 year ago PROCEDURE: HISTORICAL HYSTERECTOMY; COMMENT: due to fibroids COLONOSCOPY 05/29/2016 PROCEDURE: HISTORICAL COLONOSCOPY; COMMENT: Dr. Maryann mustafa, o/w negative. Repeat 10 years ESOPHAGOGASTRODUODENOSCOPY 01/20/2018 PROCEDURE: [place] ESOPHAGOGASTRODUODENOSCOPY TRANSORAL DIAGNOSTIC; COMMENT: nodular gastritis and [...] Daughter 2 Alive nephrolithiasis Father (Age 55) [place] Mother (Age 98) Sister 1 Alive Sister [...] Health Maintenance Due Date Last Done Comments Colorectal Cancer Screening: Colonoscopy 1953 Zoster Vaccines (1 of 2) 2003 RSV Immunization Adult Patients (1 - Risk 60-74 years 1-dose series) 2013 Breast Cancer Screening 01/30/2021 01/30/2019 Falls Risk Assessment 10/17/2022 Hepatitis C Screening 10/17/2022 Social Influencers of Health Screening 10/17/2022 Depression Screening 11/08/2024 COVID-19 Vaccine (1 - 2023-2 5 season) 2025 Influenza Vaccine (#1) 2025 DTaP,Tdap,and Td Vaccines [...] (World Health Organization Fracture Risk Assessment) [facility] Department of Internal Medicine recommends using [...] alternative screening schedule based on rea Stevens., [facility] November 26, 2011 for patients [...] years. (WorldHealth Organization Fracture Risk Assessment) [facility] Department of Internal Medicine recommendsusing National [...] Recently Relevant to Health Maintenance Care Teams Promotions Associate Relationship Specialty Start Date End Date Mahogany Hopper MD [address] [place] [address] PCP - General Internal Medicine 05/15/22
== END 2025-08-09 12:59 | disposition home or self-care (01) ==
LOC: HO.MAMMO 12:58
PROVIDERS: PCP Internal Medicine; Visit Provider Internal Medicine
DX: N64.89 Other specified disorders of breast (principal)
CPT/HCPCS: 76642; 77061; 77065

== ENCOUNTER → 2025-08-09 13:00 | Outpatient (BNV) | payer MEDICARE, SELFPAY | PROVIDERS: PCP Internal Medicine; Visit Provider Internal Medicine | DX: R92.8 Other abnormal and inconclusive findings on diagnostic imaging of breast (principal) | CPT/HCPCS: 76642; 77065; G0279 ==